=== PATIENT | female | born 1955 | race Caucasian/White ===

== ENCOUNTER → 2018-01-22 | Outpatient (CLI) | payer OTHER ==
[2018-01-23 08:52] LABS: Candida species (DNA Probe) Negative (NEGATIVE); G. vaginalis (DNA Probe) Positive (NEGATIVE); T. vaginalis (DNA Probe) Negative (NEGATIVE)
== END ==
LOC: LAB SHORT 16:33 → LAB 16:33
PROVIDERS: Family Medicine
DX: L29.8 Other pruritus (principal)
CPT/HCPCS: 87480; 87510; 87660

== ENCOUNTER 2018-05-07 10:04 | Day surgery (SDC) | payer OTHER | END 2018-05-07 22:48 | disposition home or self-care (01) | LOC: MOI MAM 10:04 | DX: N60.32 Fibrosclerosis of left breast (principal); R92.2 Inconclusive mammogram | CPT/HCPCS: 19081; 88305 ==

== ENCOUNTER → 2018-07-09 | Outpatient (CLI) | payer OTHER ==
[~2018-07-09] MED LIST: ASPI81CH PO; ATOR20 PO; CEPH500 PO; FURO20 PO; LEVSOD125 PO; MAGOXI400 PO; Norco 5-325 Ta1 EACH PO; VENL25
[2018-07-09 13:48] LABS: BASOPHILS ABSOLUTE AUTO 0.11 K/mm3 (0.00-0.23); BASOPHILS PERCENT AUTO 1 % (0-2); EOSINOPHILS ABSOLUTE AUTO 0.29 K/mm3 (0.00-0.68); EOSINOPHILS PERCENT AUTO 2 % (0-6); Hematocrit 47.5 % (33.0-51.0); Hemoglobin 15.8 g/dL (11.5-16.0); IMMATURE GRAN ABSOLUTE AUTO 0.04 K/mm3 (0.00-0.10); IMMATURE GRAN PERCENT AUTO 0 % (0-1); LYMPHOCYTES ABSOLUTE AUTO 4.56 K/mm3 (0.84-5.20); LYMPHOCYTES PERCENT AUTO 35 % (21-46); MONOCYTES ABSOLUTE AUTO 0.87 K/mm3 (0.16-1.47); MONOCYTES PERCENT AUTO 7 % (4-13); Mean Corpuscular HGB 30.6 pg (26.0-34.0); Mean Corpuscular HGB Conc 33.3 g/dL (31.5-36.5); Mean Corpuscular Volume 92 fL (80-100); Mean Platelet Volume 11.5 fL (9.1-12.4); NEUTROPHILS ABSOLUTE AUTO 7.08 K/mm3 (1.96-9.15); NEUTROPHILS PERCENT AUTO 55 % (41-73); Platelet Count 235 K/mm3 (150-400); RDW Coefficient Variation 17.7 % (11.7-14.2); RDW Standard Deviation 58.8 fL (35.1-46.3); Red Blood Cell Count 5.17 M/mm3 (3.80-5.20); White Blood Cell Count 12.95 K/mm3 (4.00-11.30)
[2018-07-09 14:03] LABS: Alanine Aminotransfer (ALT/SGP 246 U/L (12-78); Albumin, Blood 2.7 g/dL (3.4-5.0); Albumin/Globulin Ratio 0.5 (0.8-1.8); Alk Phos 257 U/L (40-126); Anion Gap 7 mmol/L (6-16); Aspartate Aminotrans (AST/SGOT 291 U/L (12-37); Bilirubin, Total 1.5 mg/dL (0.1-1.0); Blood Urea Nitrogen 11 mg/dL (8-24); Bun/Creatinine Ratio 13.4 (12.0-20.0); CO2, Blood 28 mmol/L (21-32); Calcium, Blood 8.5 mg/dL (8.5-10.1); Chloride, Blood 101 mmol/L (98-108); Creatinine, Blood 0.82 mg/dL (0.40-1.00); Globulin, Blood 5.4 g/dL (2.2-4.0); Glomerular Filtration Rate >60 (60-); Glucose, Blood 97 mg/dL (70-99); Sodium, Blood 136 mmol/L (136-145); Total Protein, Blood 8.1 g/dL (6.4-8.2)
[2018-07-09 14:04] LABS: Troponin I <0.017 ng/mL (0.000-0.040)
== END | disposition home or self-care (01) ==
LOC: LAB SHORT 13:44 → LAB EV 13:44
PROVIDERS: Physician Assistant
DX: R10.11 Right upper quadrant pain (principal)
CPT/HCPCS: 80053; 83690; 84484; 85025; 85379

== ENCOUNTER → 2018-11-17 | Outpatient (CLI) | payer OTHER, SELFPAY ==
[~2018-11-17] MED LIST changes: +CALCIUM PO; +METROGEL55 GM TOP; +Omega 3 1,0001 EACH PO; +STRESS B-COMPL1 EACH PO; -VENL25; +VENL25 PO
== END ==
LOC: LAB SHORT 17:55 → LAB 17:55
DX: R35.0 Frequency of micturition (principal); R53.83 Other fatigue
CPT/HCPCS: 87086

== ENCOUNTER 2018-12-02 09:54 | Day surgery (SDC) | payer OTHER, SELFPAY ==
--- NOTE | 2018-12-02 11:51 | NUR ---
1145- RESUMED CARE OF PATIENT. Dressing to biopsy site to right lateral upper abdomen, dry, intact with visible drainage, swelling, erythema or bruising noted.
--- NOTE | 2018-12-02 13:12 | NUR ---
No change to bx site to RUQ abdomen. No visible drainage, swelling, erythema or bruising noted. Patient states her RUQ abd/shoulder/neck pain tolerable and down to 3/10. Up to BR with steady gait, but admits to nurse she is feeling under the influence of her antianxiety medication,Ativan,taken at home today in preperation for her biopsy. Patient alert and answers questions appropriately. Discharge instructions reviewed with patient. Patient verbalizes understanding. Copy given to patient to take home. Patient States Post-Procedure ride home has been arranged with Adriano.
== END 2018-12-02 13:17 | disposition home or self-care (01) ==
LOC: US 09:54
DX: K74.60 Unspecified cirrhosis of liver (principal); K75.9 Inflammatory liver disease, unspecified; R74.8 Abnormal levels of other serum enzymes; E78.5 Hyperlipidemia, unspecified; Z86.73 Personal history of transient ischemic attack (TIA), and cerebral infarction without residual deficits; Z88.1 Allergy status to other antibiotic agents; Z87.891 Personal history of nicotine dependence
CPT/HCPCS: 47000; 76942; 88307

== ENCOUNTER → 2018-12-03 | Outpatient (CLI) | payer OTHER | END | disposition home or self-care (01) | LOC: LAB SHORT 15:30 → LAB 15:30 | DX: E11.9 Type 2 diabetes mellitus without complications (principal); R80.9 Proteinuria, unspecified | CPT/HCPCS: 82043 ==

== ENCOUNTER → 2019-03-18 | Outpatient (CLI) | payer OTHER ==
[2019-03-18 17:04] LABS: Influenza A Negative (NEGATIVE); Influenza B Negative (NEGATIVE)
== END | disposition home or self-care (01) ==
LOC: LAB 12:20 → LAB SHORT 12:20
PROVIDERS: Physician Assistant
DX: R05 Cough (principal)
CPT/HCPCS: 87804

== ENCOUNTER 2019-04-17 08:03 | Day surgery (SDC) | payer OTHER ==
[~2019-04-17] VITALS: Ht 162.6 cm; Wt 144.6 kg
[~2019-04-17 08:03] MED LIST changes: +BUDE6HFA INH; +BUPR150T2 PO
--- NOTE | 2019-04-17 08:53 | NUR ---
History, Chart, Medications and Allergies reviewed before start of procedure. Lungs clear T/O to Auscultation. Patient confirms NPO status and agrees with scheduled surgery. Pre-Op teaching done. Pt verbalizes understanding. Patient States Post-Procedure ride home has been arranged.
--- NOTE | 2019-04-17 09:38 | NUR ---
04/17/19 0938 Floyd Morales See Anesthesia record. Patient to ENDO 1. History, Chart, Medications and Allergies reviewed before start of procedure. MONITOR INTACT WITH CONTINUOUS PULSE OXIMETRY AND INTERMITTENT BP. O2 VIA N/C INTACT THROUGHOUT SEDATION/PROCEDURE.
--- NOTE | 2019-04-17 10:01 | NUR ---
DR REEVES PRESENT AT BEDSIDE NOW.
== END 2019-04-17 23:00 | disposition home or self-care (01) ==
LOC: ORSCMMR 08:03 → ORD 09:45 → ORSCMMR 23:00
PROVIDERS: Internal Medicine Gastroenterology
PROC: 0DB68ZX Excision of Stomach, Via Natural or Artificial Opening Endoscopic, Diagnostic (ICD-10-PCS; principal; 2019-04-17 09:45)
PROC: 0D757ZZ Dilation of Esophagus, Via Natural or Artificial Opening (ICD-10-PCS; principal; 2019-04-17 09:45)
DX: K74.60 Unspecified cirrhosis of liver (principal); R13.10 Dysphagia, unspecified; K29.80 Duodenitis without bleeding; K31.89 Other diseases of stomach and duodenum; K76.6 Portal hypertension; G47.33 Obstructive sleep apnea (adult) (pediatric); E11.9 Type 2 diabetes mellitus without complications; E78.5 Hyperlipidemia, unspecified; Z86.73 Personal history of transient ischemic attack (TIA), and cerebral infarction without residual deficits; E05.90 Thyrotoxicosis, unspecified without thyrotoxic crisis or storm; F32.9 Major depressive disorder, single episode, unspecified; J45.909 Unspecified asthma, uncomplicated; E66.01 Morbid (severe) obesity due to excess calories; Z68.43 Body mass index [BMI] 50.0-59.9, adult; Z87.891 Personal history of nicotine dependence; Z79.82 Long term (current) use of aspirin; Z79.899 Other long term (current) drug therapy
CPT/HCPCS: 82947; 88305; 88342; J2704; J7120

== ENCOUNTER 2019-10-24 18:31 | Emergency (ER) | payer OTHER ==
[~2019-10-24] VITALS: Ht 162.6 cm; Wt 131.5 kg
== END 2019-10-24 21:30 | disposition home or self-care (01) ==
LOC: ER 18:31
DX: M79.675 Pain in left toe(s) (principal); G89.29 Other chronic pain; Z88.1 Allergy status to other antibiotic agents; Z79.899 Other long term (current) drug therapy; Z79.82 Long term (current) use of aspirin; Z86.73 Personal history of transient ischemic attack (TIA), and cerebral infarction without residual deficits; Z87.891 Personal history of nicotine dependence
CPT/HCPCS: 93971; 99283-25

== ENCOUNTER 2021-05-17 10:09 | Emergency (ER) | payer OTHER ==
[~2021-05-17] VITALS: Ht 162.6 cm; Wt 131.5 kg
[2021-05-17 10:53] LABS: BASOPHILS ABSOLUTE AUTO 0.05 K/mm3 (0.00-0.23); BASOPHILS PERCENT AUTO 1 % (0-2); EOSINOPHILS ABSOLUTE AUTO 0.29 K/mm3 (0.00-0.68); EOSINOPHILS PERCENT AUTO 4 % (0-6); Hematocrit 44.7 % (33.0-51.0); Hemoglobin 13.9 g/dL (11.5-16.0); IMMATURE GRAN ABSOLUTE AUTO 0.01 K/mm3 (0.00-0.10); IMMATURE GRAN PERCENT AUTO 0 % (0-1); LYMPHOCYTES ABSOLUTE AUTO 3.15 K/mm3 (0.84-5.20); LYMPHOCYTES PERCENT AUTO 38 % (21-46); MONOCYTES ABSOLUTE AUTO 0.62 K/mm3 (0.16-1.47); MONOCYTES PERCENT AUTO 7 % (4-13); Mean Corpuscular HGB 28.6 pg (26.0-34.0); Mean Corpuscular HGB Conc 31.1 g/dL (31.5-36.5); Mean Corpuscular Volume 92 fL (80-100); Mean Platelet Volume 10.6 fL (9.1-12.4); NEUTROPHILS ABSOLUTE AUTO 4.26 K/mm3 (1.96-9.15); NEUTROPHILS PERCENT AUTO 51 % (41-73); Platelet Count 169 K/mm3 (150-400); RDW Coefficient Variation 16.6 % (11.7-14.2); RDW Standard Deviation 56.1 fL (35.1-46.3); Red Blood Cell Count 4.86 M/mm3 (3.80-5.20); White Blood Cell Count 8.38 K/mm3 (4.00-11.30)
[2021-05-17 11:05] LABS: Troponin I <0.015 ng/mL (0.000-0.040)
[2021-05-17 11:06] LABS: Alanine Aminotransfer (ALT/SGP 40 U/L (12-78); Albumin, Blood 3.5 g/dL (3.4-5.0); Albumin/Globulin Ratio 0.8 (0.8-1.8); Alk Phos 222 U/L (50-136); Anion Gap 6 mmol/L (6-16); Aspartate Aminotrans (AST/SGOT 46 U/L (12-37); Bilirubin, Total 1.2 mg/dL (0.1-1.0); Blood Urea Nitrogen 13 mg/dL (8-24); Bun/Creatinine Ratio 20.1 (12.0-20.0); CO2, Blood 28 mmol/L (21-32); Calcium, Blood 9.6 mg/dL (8.5-10.1); Chloride, Blood 105 mmol/L (98-108); Creatinine, Blood 0.65 mg/dL (0.40-1.00); Globulin, Blood 4.6 g/dL (2.2-4.0); Glomerular Filtration Rate >60 (60-); Glucose, Blood 152 mg/dL (70-99); Potassium, Blood 4.2 mmol/L (3.5-5.5); Sodium, Blood 139 mmol/L (136-145); Total Protein, Blood 8.1 g/dL (6.4-8.2)
[2021-05-17] MEDS ORDERED: ALBU90OI INH (15:13)
[2021-05-17 15:25] LABS: Influenza A, PCR NEGATIVE (NEGATIVE); Influenza B, PCR NEGATIVE (NEGATIVE); Resp Syncytial Virus, PCR NEGATIVE (NEGATIVE); SARS-Cov-2 (COVID-19) PCR, MMC NEGATIVE (NEGATIVE)
== END 2021-05-17 16:44 | disposition home or self-care (01) ==
LOC: ER 10:09
PROVIDERS: Physician Assistant; Student in an Organized Health Care Education/Training Program
DX: F41.9 Anxiety disorder, unspecified (principal); J06.9 Acute upper respiratory infection, unspecified; Z88.1 Allergy status to other antibiotic agents; J45.909 Unspecified asthma, uncomplicated; Z79.82 Long term (current) use of aspirin; Z79.899 Other long term (current) drug therapy; Z87.891 Personal history of nicotine dependence; Z20.822 Contact with and (suspected) exposure to COVID-19
CPT/HCPCS: 0241U; 36415; 71046; 80053; 84484; 85025; 93005; 93010; 96374; 96375; 99285-25; J1885; J2405; J7030

== ENCOUNTER 2021-05-20 11:45 | Emergency (ER) | payer OTHER ==
[~2021-05-20] VITALS: Ht 162.6 cm; Wt 113.4 kg
[~2021-05-20 11:45] MED LIST changes: +ALBU90OI INH
[2021-05-20 12:39] LABS: BASOPHILS ABSOLUTE AUTO 0.05 K/mm3 (0.00-0.23); BASOPHILS PERCENT AUTO 1 % (0-2); EOSINOPHILS ABSOLUTE AUTO 0.03 K/mm3 (0.00-0.68); EOSINOPHILS PERCENT AUTO 0 % (0-6); Hematocrit 42.9 % (33.0-51.0); Hemoglobin 13.6 g/dL (11.5-16.0); IMMATURE GRAN ABSOLUTE AUTO 0.07 K/mm3 (0.00-0.10); IMMATURE GRAN PERCENT AUTO 1 % (0-1); LYMPHOCYTES ABSOLUTE AUTO 1.66 K/mm3 (0.84-5.20); LYMPHOCYTES PERCENT AUTO 16 % (21-46); MONOCYTES ABSOLUTE AUTO 0.75 K/mm3 (0.16-1.47); MONOCYTES PERCENT AUTO 7 % (4-13); Mean Corpuscular HGB 28.7 pg (26.0-34.0); Mean Corpuscular HGB Conc 31.7 g/dL (31.5-36.5); Mean Corpuscular Volume 91 fL (80-100); Mean Platelet Volume 11.1 fL (9.1-12.4); NEUTROPHILS ABSOLUTE AUTO 7.79 K/mm3 (1.96-9.15); NEUTROPHILS PERCENT AUTO 75 % (41-73); Platelet Count 189 K/mm3 (150-400); RDW Coefficient Variation 16.2 % (11.7-14.2); RDW Standard Deviation 54.6 fL (35.1-46.3); Red Blood Cell Count 4.74 M/mm3 (3.80-5.20); White Blood Cell Count 10.35 K/mm3 (4.00-11.30)
[2021-05-20 12:58] LABS: Alanine Aminotransfer (ALT/SGP 28 U/L (12-78); Albumin, Blood 3.6 g/dL (3.4-5.0); Albumin/Globulin Ratio 0.9 (0.8-1.8); Alk Phos 169 U/L (50-136); Anion Gap 0 mmol/L (6-16); Aspartate Aminotrans (AST/SGOT 23 U/L (12-37); Bilirubin, Total 0.8 mg/dL (0.1-1.0); Blood Urea Nitrogen 19 mg/dL (8-24); Bun/Creatinine Ratio 31.1 (12.0-20.0); CO2, Blood 31 mmol/L (21-32); Chloride, Blood 109 mmol/L (98-108); Creatinine, Blood 0.61 mg/dL (0.40-1.00); Glomerular Filtration Rate >60 (60-); Glucose, Blood 166 mg/dL (70-99); Potassium, Blood 4.1 mmol/L (3.5-5.5); Sodium, Blood 140 mmol/L (136-145); Total Protein, Blood 7.6 g/dL (6.4-8.2)
[2021-05-20] MEDS ORDERED: XARELTO10 M1 PO (16:23)
[2021-05-20] MEDS ORDERED: XARELTO15 MG PO (17:43)
== END 2021-05-20 17:37 | disposition home or self-care (01) ==
LOC: ER 11:45
PROVIDERS: Physician Assistant
DX: I82.442 Acute embolism and thrombosis of left tibial vein (principal); I82.452 Acute embolism and thrombosis of left peroneal vein; Z88.1 Allergy status to other antibiotic agents; Z79.899 Other long term (current) drug therapy; Z79.82 Long term (current) use of aspirin; Z87.891 Personal history of nicotine dependence
CPT/HCPCS: 36415; 71260; 80053; 85025; 93005; 93010; 93971; Q9967

== ENCOUNTER → 2021-05-29 | Outpatient (CLI) | payer OTHER ==
[~2021-05-29] MED LIST changes: +XARELTO10 M1 PO; +XARELTO15 MG PO
== END | disposition home or self-care (01) ==
LOC: LAB SHORT 10:00
DX: R31.9 Hematuria, unspecified (principal)
CPT/HCPCS: 87086

== ENCOUNTER → 2022-05-30 | Outpatient (CLI) | payer OTHER ==
[2022-05-30 17:30] LABS: Influenza A, PCR NEGATIVE (NEGATIVE); Influenza B, PCR NEGATIVE (NEGATIVE); Resp Syncytial Virus, PCR NEGATIVE (NEGATIVE); SARS-Cov-2 (COVID-19) PCR, MMC NEGATIVE (NEGATIVE)
== END | disposition home or self-care (01) ==
LOC: LAB SHORT 14:45
PROVIDERS: Family Medicine
DX: J02.9 Acute pharyngitis, unspecified (principal); M79.10 Myalgia, unspecified site
CPT/HCPCS: 0241U

== ENCOUNTER → 2022-07-14 | Outpatient (CLI) | payer OTHER ==
[2022-07-14 12:27] LABS: Influenza A, PCR NEGATIVE (NEGATIVE); Influenza B, PCR NEGATIVE (NEGATIVE); Resp Syncytial Virus, PCR NEGATIVE (NEGATIVE)
[2022-07-14 13:07] LABS: SARS-Cov-2 (COVID-19) PCR, MMC POSITIVE (NEGATIVE)
== END | disposition home or self-care (01) ==
LOC: LAB 11:00 → LAB SHORT 11:00
PROVIDERS: Family Medicine
DX: M79.10 Myalgia, unspecified site (principal); Z20.822 Contact with and (suspected) exposure to COVID-19; R05.9 Cough, unspecified
CPT/HCPCS: 0241U

== ENCOUNTER → 2022-08-17 | Outpatient (CLI) | payer OTHER | END | disposition home or self-care (01) | LOC: LAB SHORT 15:22 | DX: N39.0 Urinary tract infection, site not specified (principal) | CPT/HCPCS: 87086 ==

== ENCOUNTER 2022-09-29 12:54 | Observation (INO) | payer OTHER ==
[~2022-09-29] VITALS: Ht 162.6 cm; Wt 89.5 kg
[2022-09-29 13:56] LABS: BASOPHILS ABSOLUTE AUTO 0.05 K/mm3 (0.00-0.23); BASOPHILS PERCENT AUTO 1 % (0-2); EOSINOPHILS ABSOLUTE AUTO 0.25 K/mm3 (0.00-0.68); EOSINOPHILS PERCENT AUTO 3 % (0-6); Hematocrit 41.5 % (33.0-51.0); Hemoglobin 13.2 g/dL (11.5-16.0); IMMATURE GRAN ABSOLUTE AUTO 0.03 K/mm3 (0.00-0.10); IMMATURE GRAN PERCENT AUTO 0 % (0-1); LYMPHOCYTES ABSOLUTE AUTO 2.94 K/mm3 (0.84-5.20); LYMPHOCYTES PERCENT AUTO 33 % (21-46); MONOCYTES PERCENT AUTO 8 % (4-13); Mean Corpuscular HGB 28.2 pg (26.0-34.0); Mean Corpuscular HGB Conc 31.8 g/dL (31.5-36.5); Mean Corpuscular Volume 89 fL (80-100); Mean Platelet Volume 10.8 fL (9.1-12.4); NEUTROPHILS ABSOLUTE AUTO 4.93 K/mm3 (1.96-9.15); NEUTROPHILS PERCENT AUTO 55 % (41-73); Platelet Count 209 K/mm3 (150-400); RDW Coefficient Variation 17.3 % (11.7-14.2); RDW Standard Deviation 56.6 fL (35.1-46.3); Red Blood Cell Count 4.68 M/mm3 (3.80-5.20)
[2022-09-29 14:16] LABS: Albumin, Blood 3.4 g/dL (3.4-5.0); Albumin/Globulin Ratio 0.8 (0.8-1.8); Bilirubin, Total 0.6 mg/dL (0.1-1.0); Calcium, Blood 8.9 mg/dL (8.5-10.1); Creatinine, Blood 0.83 mg/dL (0.40-1.00); Potassium, Blood 4.9 mmol/L (3.5-5.5); Total Protein, Blood 7.4 g/dL (6.4-8.2)
[2022-09-29 17:50] LABS: International Normalized Ratio 1.65; Prothrombin Time Results 16.8 Sec (9.7-11.5)
[2022-09-29] MEDS ORDERED: Budeprion Xl300 MG PO (19:43)
[2022-09-29] MEDS ORDERED: LOSA25 PO (19:44)
[2022-09-29] MEDS ORDERED: VENL150ER PO (19:45)
[2022-09-29 20:30] VITALS: BP 135/71
[2022-09-30 05:44] LABS: International Normalized Ratio 1.64; Prothrombin Time Results 16.7 Sec (9.7-11.5)
[2022-09-30 05:53] LABS: CHOL/HDL RATIO 1.7; Cholesterol 126 mg/dL (50-200); HDL Cholesterol 73 mg/dL (>39); LDL/HDL RATIO 0.5; Low Density Lipoprotein Chol 38 mg/dL (0-110); Triglycerides 76 mg/dL (30-160); Very Low Density Lipoprot Chol 15 mg/dL (6-32)
--- NOTE | 2022-09-30 06:03 | NUR ---
PATIENT WAS RECIEVED THROUGH ED ADMIT, ALERT AND ORIENTED X4, COOPERATIVE WITH CARE. THE ONLY DEFICITE NOTED WERE A LUE DRIFT (MILD) AND LIMITED ROM, AND LARGER LEFT PUPIL. PLACED ON STAND BY ASSIST DUE TO 3X FALLS IN THE LAST WEEK. TELE NS AND VSS. NO OTHER ISSUES TO REPORT. WILL CONT TO MONITOR.
[2022-09-30] MEDS ORDERED: PREG150 PO (17:32)
[2022-09-30] MEDS ORDERED: SULTRIDS PO (17:33)
[2022-09-30] MEDS ORDERED: WARF5 PO (17:33)
--- NOTE | 2022-09-30 18:12 | NUR ---
PT DISCHARGED HOME. DC INSTRUCTIONS AND EDUCATION MATERIAL EXPLAINED TO PT. PT VERBAILZED NO NEW QUESTIONS OR CONCERNS. TELE AND IV IN R HAND AND LEFT AC REMOVED. PT TOLERATED WELL. IN ROOM AND HELPED PT GATHER BELONGINGS AND DRESS. PT TAKEN BY WHEELCHAIR TO WAITING VEHICLE.
== END 2022-09-30 17:50 | disposition home or self-care (01) ==
LOC: ER 12:54 → MEDS 18:56 → ENPENDDIS 09-30 16:57 → MEDS 09-30 17:50
PROVIDERS: Nurse Practitioner Acute Care; Physician Assistant; ADMIT Internal Medicine
DX: R47.01 Aphasia (principal); R53.1 Weakness; J45.909 Unspecified asthma, uncomplicated; K74.60 Unspecified cirrhosis of liver; K75.81 Nonalcoholic steatohepatitis (NASH); L03.90 Cellulitis, unspecified; F32.9 Major depressive disorder, single episode, unspecified; G47.33 Obstructive sleep apnea (adult) (pediatric); G25.81 Restless legs syndrome; E11.9 Type 2 diabetes mellitus without complications; E03.9 Hypothyroidism, unspecified; I35.0 Nonrheumatic aortic (valve) stenosis; I27.20 Pulmonary hypertension, unspecified; E66.01 Morbid (severe) obesity due to excess calories; Z68.41 Body mass index [BMI] 40.0-44.9, adult; Z87.891 Personal history of nicotine dependence; Z86.718 Personal history of other venous thrombosis and embolism; Z88.1 Allergy status to other antibiotic agents; Z79.890 Hormone replacement therapy; Z79.01 Long term (current) use of anticoagulants; Z79.82 Long term (current) use of aspirin; Z79.899 Other long term (current) drug therapy
CPT/HCPCS: 36415; 70450; 70496; 70498; 70551; 80053; 80061; 82947; 83036; 85025; 85610; 93306; 94640; 94660; 94664; 94760; 94762; 96360-59; 96361; 96372; 97162; 99285-25; A9270; G0378; J1650; J7030; Q9967

== ENCOUNTER → 2022-11-08 | Outpatient (CLI) | payer OTHER ==
[~2022-11-08] MED LIST changes: +Budeprion Xl300 MG PO; +LOSA25 PO; +PREG150 PO; +SULTRIDS PO; +VENL150ER PO; +WARF5 PO
== END | disposition home or self-care (01) ==
LOC: LAB 15:48 → LAB SHORT 15:48
DX: J02.9 Acute pharyngitis, unspecified (principal)
CPT/HCPCS: 87081

== ENCOUNTER 2022-11-30 12:19 | Day surgery (SDC) | payer OTHER ==
[~2022-11-30] VITALS: Ht 162.6 cm; Wt 121.2 kg
[2022-11-30] MEDS ORDERED: METF500 (13:23)
[2022-11-30] MEDS ORDERED: Lyrica25 MG (13:23)
[2022-11-30] MEDS ORDERED: ERGO50000 (13:24)
[2022-11-30 13:34] VITALS: BP 127/70
--- NOTE | 2022-11-30 15:19 | NUR ---
11/30/22 1519 JulitoNidhi Yanes LATE ENTRY FOR TODAY DURING ADMIT PT COMMENTED TO ALEJANDRA QUINTERO THAT SHE WAS SEEING ANTS ON HER BP CUFF, PT ALSO REPORTED TO DR. CANO THAT SHE HAS BEEN DIZZY AND FALLING LATELY. ALEJANDRA QUINTERO HAD A FURTHER CONVERSATION WITH THE PATIENT REGARDING HER "HALLUCINATIONS" AND THE PT STARTED TELLING HER GRANDDAUGHTER TO STOP PULLING HER HAIR. (GRANDDAUGHTER WAS NOT IN THE ROOM). ALEJANDRA QUINTERO SHARED INFORMATION WITH DR. CANO. PT ALSO NOTED ON RECENT ECHO 09/2022 PT WAS DIAGNOSED WITH SEVERE AORTIC STENOSIS. DR. CANO DISCUSSED THE PATIENT WITH DR. GARCÍA AND THE DECISION WAS MADE TO CANCEL THE PATIENTS EGD. DR. CANO ALSO CONTACTED THE PATIENTS PCP-MORIAH APPLE AND DISCUSSED THE SITUATION WITH HER REGARDING THE PATIENTS "HALLUCINATIONS" AND DIZZINESS WITH FALLS. DR. APPLE AGREES WITH CANCELLING THE PROCEDURE AND LETTING THE PATIENT AND HER SPOUSE DECIDE IF SHE NEEDS TO GO TO THE EMERGENCY DEPARTMENT. DR. CANO DISCUSSED THE SITUATION WITH THE PATIENT, HER SPOUSE LEANDRO HAD LEFT AND PATIENT AGREED WITH THE ASSESSMENT. PATIENT ALSO WANTED DR. CANO TO DISCUSS THIS WITH HER SPOUSE WHEN HE RETURNED. PATIENT'S SPOUSE RETURNED AND DR CANO DISCUSSED WITH HIM THE FINDINGS ON THE ECHO AND HER CONCERNS WITH CONTINUING THE PATIENTS PROCEDURE. THE SPOUSE AGREES THAT THE PROCEDURE SHOULD BE POSTPONED BUT THINKS THAT THE PATIENT IS NOT HALLUCINATING BUT HAVING VIVID DREAMS, WHICH HE REPORTS SHE HAS AT HOME. PT WILL BE DISCHARGED HOME AND HAS AN APPOINTMENT WITH CARDIOLOGY ON 12/06. RN ENCOURAGED AND PATIENT TO GO TO THE ED IF HER CONDITIONS WORSEN.
== END 2022-11-30 14:54 | disposition home or self-care (01) ==
LOC: ORSCSDS 12:19
DX: K74.60 Unspecified cirrhosis of liver (principal); E11.9 Type 2 diabetes mellitus without complications; Z53.9 Procedure and treatment not carried out, unspecified reason; I10 Essential (primary) hypertension; Z86.718 Personal history of other venous thrombosis and embolism; Z79.01 Long term (current) use of anticoagulants; Z79.899 Other long term (current) drug therapy
CPT/HCPCS: 82947; J1100; J2250; J3010; J7120

== ENCOUNTER → 2022-12-14 | Outpatient (CLI) | payer OTHER ==
[~2022-12-14] MED LIST changes: +ERGO50000; +Lyrica25 MG; +METF500
== END | disposition home or self-care (01) ==
LOC: LAB 18:12 → LAB SHORT 18:12
DX: R22.40 Localized swelling, mass and lump, unspecified lower limb (principal)
CPT/HCPCS: 85379

== ENCOUNTER 2023-02-13 07:25 | Day surgery (SDC) | payer OTHER ==
[~2023-02-13] VITALS: Ht 162.6 cm; Wt 122.0 kg
[2023-02-13] VITALS (8 sets, daily range): BP systolic 108–130; BP diastolic 52–92
[~2023-02-13 07:25] MED LIST changes: -BUDE6HFA INH; +BUPR150ER PO; -Budeprion Xl300 MG PO; +EUTHYROX125 MCG PO; -LEVSOD125 PO; -METF500; +METF500 PO; +OMEP20ER PO; -PREG150 PO; +PREG75 PO; +SYMBICORT 16010.2 GM INH; -VENL150ER PO; +VENL75ER PO
--- NOTE | 2023-02-13 10:03 | NUR ---
PT RETURNS FROM PROCEDURE, ALERT AND ORIENTED, UP IN RECLINER. PT VSS UPON ARRIVAL TO UNIT. PT. HAS TR BAND IN PLACE TO RIGHT RADIAL, NO SWELLING OR OOZING, DISTAL FINGERS PINK AND WARM. PT. TO BEDSIDE. PT. PROVIDED WITH BREAKFAST AND WATER. CALL LIGHT IN REACH.
--- NOTE | 2023-02-13 11:13 | NUR ---
PT SLEEPING UP IN RECLINER, PT VSS REMAIN STABLE. PT. TR BAND REMAINS UNCHANGED WITH FREQUENT ASSESSMENT. PT. DENIES ANY CHEST PAIN OR PRESSURE. REMAINS AT BEDSIDE. TR BAND TO BE DEFLATED PER ORDER/POLICY.
--- NOTE | 2023-02-13 11:42 | NUR ---
TR BAND DEFLATED PER PROTOCOL. SITE WNL, DISCHARGE INSTRUCTIONS REVIEWED WITH PT AND . NO FURTHER QUESTIONS. VSS
--- NOTE | 2023-02-13 12:34 | NUR ---
PT ABLE TO GET DRESSED, ASSISTED. PT. TAKEN VIA WHEELCHAIR TO EXIT. PT TO DRIVE PT HOME. PT. VSS UPON DISCHARGE, RADIAL SITE WNL.
== END 2023-02-13 11:50 | disposition home or self-care (01) ==
LOC: MHTC 07:25
DX: I35.0 Nonrheumatic aortic (valve) stenosis (principal); I10 Essential (primary) hypertension; E78.5 Hyperlipidemia, unspecified; Z86.73 Personal history of transient ischemic attack (TIA), and cerebral infarction without residual deficits; Z79.01 Long term (current) use of anticoagulants; Z87.891 Personal history of nicotine dependence; I82.409 Acute embolism and thrombosis of unspecified deep veins of unspecified lower extremity
CPT/HCPCS: 76937; 93454; 99152; 99153; C1769; C1894; J2250; J3010; J7030; J7050; Q9967

== ENCOUNTER 2023-08-31 02:08 | Day surgery (SDC) | payer OTHER ==
[~2023-08-31 02:08] MED LIST changes: +CefTRIAXone Sodium 2,000 MG in NS 100 ML IV SCH; +PREG50 PO; +TRAZ50 PO; +TRELEGY ELLIPT1 EACH IH
[2023-08-31 08:51] VITALS: BP 114/93
[2023-09-01] MEDS ORDERED: CENTRUM SILVER1 EAC2 PO (10:31)
== END 2023-08-31 09:13 | disposition home or self-care (01) ==
LOC: ATC 02:08
DX: T84.53XD Infection and inflammatory reaction due to internal right knee prosthesis, subsequent encounter (principal); Y79.2 Prosthetic and other implants, materials and accessory orthopedic devices associated with adverse incidents; J45.909 Unspecified asthma, uncomplicated; E11.9 Type 2 diabetes mellitus without complications; I10 Essential (primary) hypertension; F32.A Depression, unspecified; Z88.1 Allergy status to other antibiotic agents; Z87.891 Personal history of nicotine dependence
CPT/HCPCS: 96365; J0696

== ENCOUNTER 2023-09-01 02:13 | Day surgery (SDC) | payer OTHER ==
[2023-09-01 08:40] VITALS: BP 137/67
--- NOTE | 2023-09-01 09:51 | NUR ---
PT ARRIVED TODAY STATING SHE IS IN SEVERE PAIN. PAIN STARTED THIS SATURDAY AND IT IS CONSTANT GOING ACROSS HER ABDOMEN FROM HIP TO HIP. PT REPORTS SHE IS MOST COMFORTABLE LYING ON HER BACK FLAT WITHOUT MOVING. PAIN INTESNSIFIES WHEN USING ABDOMINAL MUSCLES. PT REPORTS PAIN FEELS SIMILAR TO THE PAIN SHE FELT WHEN SHE WAS DIAGNOSED WITH SEPSIS. PT IS CONCERNED AND IS GOING TO THE ER FOR EVALUATION AFTER TODAY'S ABX. PT REPORTS NO ISSUES WITH VOIDING OR BOWEL MOVEMENTS. NO RECENT FALLS. IT IS UNKNOWN WHY THE PAIN HAS STARTED.
[2023-09-01] MEDS ORDERED: CENTRUM SILVER1 EAC2 PO (10:31)
== END 2023-09-01 09:04 | disposition home or self-care (01) ==
LOC: ATC 02:13
DX: T84.53XD Infection and inflammatory reaction due to internal right knee prosthesis, subsequent encounter (principal); Y79.2 Prosthetic and other implants, materials and accessory orthopedic devices associated with adverse incidents; I10 Essential (primary) hypertension; E11.9 Type 2 diabetes mellitus without complications; Z88.1 Allergy status to other antibiotic agents; Z87.891 Personal history of nicotine dependence; K74.60 Unspecified cirrhosis of liver; K76.6 Portal hypertension; R16.1 Splenomegaly, not elsewhere classified; J45.909 Unspecified asthma, uncomplicated; G47.33 Obstructive sleep apnea (adult) (pediatric); G25.81 Restless legs syndrome; Z79.84 Long term (current) use of oral hypoglycemic drugs; Z79.51 Long term (current) use of inhaled steroids; Z79.01 Long term (current) use of anticoagulants; Z79.899 Other long term (current) drug therapy
CPT/HCPCS: 74177; 80053; 81003; 83735; 85025; 93005; 93010; 96365; 96374-59; 99284-25; J0696; J3010; Q9967

== ENCOUNTER 2023-09-02 04:29 | Day surgery (SDC) | payer OTHER ==
[~2023-09-02 04:29] MED LIST changes: +CENTRUM SILVER1 EAC2 PO
[2023-09-02 10:15] VITALS: BP 131/84
== END 2023-09-02 10:40 | disposition home or self-care (01) ==
LOC: ATC 04:29
DX: T84.53XD Infection and inflammatory reaction due to internal right knee prosthesis, subsequent encounter (principal); J45.909 Unspecified asthma, uncomplicated
CPT/HCPCS: 96365; J0696

== ENCOUNTER 2023-09-03 01:20 | Day surgery (SDC) | payer OTHER ==
[~2023-09-03 01:20] MED LIST changes: -CefTRIAXone Sodium 2,000 MG in NS 100 ML IV SCH
[2023-09-03] MEDS ORDERED: CefTRIAXone Sodium 2,000 MG in NS 100 ML IV SCH (06:00)
[2023-09-03 11:12] LABS: BASOPHILS ABSOLUTE AUTO 0.04 K/mm3 (0.00-0.23); BASOPHILS PERCENT AUTO 1 % (0-2); EOSINOPHILS ABSOLUTE AUTO 0.02 K/mm3 (0.00-0.68); EOSINOPHILS PERCENT AUTO 0 % (0-6); Hematocrit 30.1 % (33.0-51.0); Hemoglobin 9.3 g/dL (11.5-16.0); IMMATURE GRAN ABSOLUTE AUTO 0.02 K/mm3 (0.00-0.10); IMMATURE GRAN PERCENT AUTO 0 % (0-1); LYMPHOCYTES ABSOLUTE AUTO 1.04 K/mm3 (0.84-5.20); LYMPHOCYTES PERCENT AUTO 16 % (21-46); MONOCYTES ABSOLUTE AUTO 0.62 K/mm3 (0.16-1.47); MONOCYTES PERCENT AUTO 9 % (4-13); Mean Corpuscular HGB 25.8 pg (26.0-34.0); Mean Corpuscular HGB Conc 30.9 g/dL (31.5-36.5); Mean Corpuscular Volume 83 fL (80-100); Mean Platelet Volume 10.7 fL (9.1-12.4); NEUTROPHILS ABSOLUTE AUTO 4.85 K/mm3 (1.96-9.15); NEUTROPHILS PERCENT AUTO 74 % (41-73); Platelet Count 159 K/mm3 (150-400); RDW Coefficient Variation 21.7 % (11.7-14.2); RDW Standard Deviation 65.1 fL (35.1-46.3); Red Blood Cell Count 3.61 M/mm3 (3.80-5.20); White Blood Cell Count 6.59 K/mm3 (4.00-11.30)
[2023-09-03 11:40] LABS: Albumin, Blood 2.5 g/dL (3.4-5.0); Bilirubin, Total 1.1 mg/dL (0.1-1.0); Bun/Creatinine Ratio 13.3 (12.0-20.0); C-REACTIVE PROTEIN, EXT RANGE 3.72 mg/dL (0.000-0.300); Calcium, Blood 7.1 mg/dL (8.5-10.1); Creatinine, Blood 0.53 mg/dL (0.40-1.00); Globulin, Blood 2.5 g/dL (2.2-4.0); Potassium, Blood 2.7 mmol/L (3.5-5.5)
[2023-09-03 12:03] VITALS: BP 135/77
== END 2023-09-03 10:32 | disposition home or self-care (01) ==
LOC: ATC 01:20
PROVIDERS: Internal Medicine Infectious Disease
DX: T84.53XD Infection and inflammatory reaction due to internal right knee prosthesis, subsequent encounter (principal); Y79.2 Prosthetic and other implants, materials and accessory orthopedic devices associated with adverse incidents; J45.20 Mild intermittent asthma, uncomplicated; E11.9 Type 2 diabetes mellitus without complications; I10 Essential (primary) hypertension; Z87.891 Personal history of nicotine dependence
CPT/HCPCS: 80053; 85025; 85651; 86140; 96365; J0696

== ENCOUNTER 2023-09-04 03:24 | Day surgery (SDC) | payer OTHER ==
[~2023-09-04 03:24] MED LIST changes: +CefTRIAXone Sodium 2,000 MG in NS 100 ML IV SCH
[2023-09-04 09:42] VITALS: BP 136/82
== END 2023-09-04 10:00 | disposition home or self-care (01) ==
LOC: ATC 03:24
DX: T84.53XD Infection and inflammatory reaction due to internal right knee prosthesis, subsequent encounter (principal); Y79.2 Prosthetic and other implants, materials and accessory orthopedic devices associated with adverse incidents; J45.909 Unspecified asthma, uncomplicated; E11.9 Type 2 diabetes mellitus without complications; I10 Essential (primary) hypertension; F32.A Depression, unspecified; Z87.891 Personal history of nicotine dependence; Z88.1 Allergy status to other antibiotic agents
CPT/HCPCS: 96365; J0696

== ENCOUNTER 2023-09-04 18:50 | Inpatient (IN) | payer OTHER ==
[~2023-09-04] VITALS: Ht 165.1 cm; Wt 125.4 kg
[~2023-09-04 18:50] MED LIST changes: -CefTRIAXone Sodium 2,000 MG in NS 100 ML IV SCH
[2023-09-04 19:05] LABS: BASOPHILS ABSOLUTE AUTO 0.12 K/mm3 (0.00-0.23); BASOPHILS PERCENT AUTO 1 % (0-2); EOSINOPHILS ABSOLUTE AUTO 0.25 K/mm3 (0.00-0.68); EOSINOPHILS PERCENT AUTO 2 % (0-6); Hematocrit 38.8 % (33.0-51.0); Hemoglobin 11.7 g/dL (11.5-16.0); IMMATURE GRAN ABSOLUTE AUTO 0.07 K/mm3 (0.00-0.10); IMMATURE GRAN PERCENT AUTO 0 % (0-1); LYMPHOCYTES PERCENT AUTO 25 % (21-46); MONOCYTES ABSOLUTE AUTO 1.43 K/mm3 (0.16-1.47); MONOCYTES PERCENT AUTO 9 % (4-13); Mean Corpuscular HGB 25.9 pg (26.0-34.0); Mean Corpuscular HGB Conc 30.2 g/dL (31.5-36.5); Mean Corpuscular Volume 86 fL (80-100); Mean Platelet Volume 10.2 fL (9.1-12.4); NEUTROPHILS ABSOLUTE AUTO 9.86 K/mm3 (1.96-9.15); NEUTROPHILS PERCENT AUTO 63 % (41-73); Platelet Count 262 K/mm3 (150-400); RDW Coefficient Variation 22.2 % (11.7-14.2); RDW Standard Deviation 68.9 fL (35.1-46.3); Red Blood Cell Count 4.52 M/mm3 (3.80-5.20); White Blood Cell Count 15.63 K/mm3 (4.00-11.30)
[2023-09-04 19:15] LABS: Base Excess Venous 0.2 mmol/L; Bicarbonate Venous 24.2 mmol/L (24.0-30.0); PCO2 Venous 46.2 mmHg (38-42); pH Blood Venous 7.35 (7.34-7.37)
[2023-09-04] MEDS ORDERED: Albuterol 2.5 MG/3 ML VIAL INH SCH (19:20)
[2023-09-04 19:24] LABS: International Normalized Ratio 1.23
[2023-09-04 19:40] LABS: Albumin, Blood 3.4 g/dL (3.4-5.0); Albumin/Globulin Ratio 0.8 (0.8-1.8); Bilirubin, Total 1.2 mg/dL (0.1-1.0); Bun/Creatinine Ratio 13.3 (12.0-20.0); Creatinine, Blood 0.83 mg/dL (0.40-1.00); Globulin, Blood 4.1 g/dL (2.2-4.0); Potassium, Blood 3.8 mmol/L (3.5-5.5)
[2023-09-04 19:55] LABS: Calcium, Blood 9.3 mg/dL (8.5-10.1); Total Protein, Blood 7.5 g/dL (6.4-8.2)
[2023-09-04] MEDS ORDERED: Vancomycin HCL 1,000 MG in NS 110 ML IV ONE (20:10)
[2023-09-04] MEDS ORDERED: LevoFLOXacin 750 MG/D5W 150ML 150 ML IV ONE (20:10)
[2023-09-04] MEDS ORDERED: Acetaminophen 325 MG TABLET PO PRN (21:35)
[2023-09-04] MEDS ORDERED: Albuterol 2.5 MG/3 ML VIAL INH PRN (21:40)
[2023-09-04] MEDS ORDERED: Ondansetron HCl 2 MG / ML 2ML Vial IV PRN (21:40)
[2023-09-04] MEDS ORDERED: Enoxaparin 40 MG/0.4 ML SYR SC ONE (22:00)
[2023-09-04] MEDS ORDERED: Furosemide 10 MG/ML 4ML Vial IV SCH (22:00)
[2023-09-04] MEDS ORDERED: Vancomycin HCL 1,000 MG in NS 100 ML IV ONE (22:30)
[2023-09-04] MEDS ORDERED: Warfarin Sodium 5 MG Tab PO ONE (22:30)
[2023-09-04] MEDS ORDERED: Tiotropium Bromide 2.5 MCG/ACT MIST INHAL (10 ACT/4 GM) INH SCH (22:35)
[2023-09-04] MEDS ORDERED: Mometasone/Formoterol MDI 100/5 mcg 13 GM INH SCH (22:35)
[2023-09-04 22:41] VITALS: BP 124/81
[2023-09-04] MEDS ORDERED: NS 250 ML IV PRN (23:00)
--- NOTE | 2023-09-04 23:00 | NUR ---
ARRIVAL TO PCU 10 PT ARRIVED TO PCU 10 AT APPROXIMATELY 2215. PT ARRIVED ON BIPAP WITH AT BEDSIDE. PT SLID OVER FROM ER GURNEY TO HOSPITAL BED BY 4 CLINICAL STAFF MEMBERS. PT A&O TO SELF, PERSON, PLACE; PT CAN BE FORGETFUL AT TIMES BUT CAN BE REORIENTED. BP STABLE, SINUS 80's, DENIES CP/PRESSURE. SpO2> 92% ON BIPAP 16/8 45% FiO2, DENIES SOB. PT TOLERATED BEING OFF BIPAP ON RA TO TAKE PILLS. PT REQUESTING PUREWICK AND TO HAVE ALL FOUR BED RAILS UP. ORIENTED TO CALL LIGHT/UNIT, BED IN LOWEST POSITION.
[2023-09-05] VITALS (11 sets, daily range): BP systolic 95–128; BP diastolic 52–84
[2023-09-05 01:32] LABS: Source, Urine Clean Catch
[2023-09-05 02:12] LABS: Bilirubin, Urine Neg (Neg); Blood, Urine 1+ (Neg); Glucose Qualitative, Urine Neg (Neg); Ketones, Urine Neg (Neg); Leukocyte Esterase, Urine Neg (Neg); Nitrite, Urine Neg (Neg); Protein, Urine 2+ (Neg); Urobilinogen, Urine NORM (Normal)
[2023-09-05 02:26] LABS: Appearance, Urine Clear (Clear); Color, Urine Pale Yellow (P-Yellow)
[2023-09-05 02:27] LABS: Amorphous Light (0-Heavy); Bacteria Rare /hpf; Red Blood Cells, Urine 0-2 /hpf (0-2); Squamous Epithelial Cells Few /hpf (Few); White Blood Cells, Urine 0-2 /hpf (0-5)
[2023-09-05 04:22] LABS: BASOPHILS PERCENT AUTO 0 % (0-2); EOSINOPHILS PERCENT AUTO 0 % (0-6); Hematocrit 29.3 % (33.0-51.0); Hemoglobin 9.1 g/dL (11.5-16.0); IMMATURE GRAN ABSOLUTE AUTO 0.01 K/mm3 (0.00-0.10); IMMATURE GRAN PERCENT AUTO 0 % (0-1); LYMPHOCYTES ABSOLUTE AUTO 0.38 K/mm3 (0.84-5.20); LYMPHOCYTES PERCENT AUTO 7 % (21-46); MONOCYTES ABSOLUTE AUTO 0.11 K/mm3 (0.16-1.47); MONOCYTES PERCENT AUTO 2 % (4-13); Mean Corpuscular HGB 26.1 pg (26.0-34.0); Mean Corpuscular HGB Conc 31.1 g/dL (31.5-36.5); Mean Corpuscular Volume 84 fL (80-100); Mean Platelet Volume 10.5 fL (9.1-12.4); NEUTROPHILS ABSOLUTE AUTO 4.65 K/mm3 (1.96-9.15); NEUTROPHILS PERCENT AUTO 90 % (41-73); Platelet Count 136 K/mm3 (150-400); RDW Coefficient Variation 21.5 % (11.7-14.2); RDW Standard Deviation 64.9 fL (35.1-46.3); Red Blood Cell Count 3.49 M/mm3 (3.80-5.20); White Blood Cell Count 5.15 K/mm3 (4.00-11.30)
[2023-09-05 04:34] LABS: International Normalized Ratio 1.37; Prothrombin Time Results 14.3 Sec (9.7-11.5)
[2023-09-05 04:57] LABS: Albumin, Blood 2.9 g/dL (3.4-5.0); Albumin/Globulin Ratio 0.9 (0.8-1.8); Bun/Creatinine Ratio 16.7 (12.0-20.0); Calcium, Blood 8.7 mg/dL (8.5-10.1); Creatinine, Blood 0.78 mg/dL (0.40-1.00); Globulin, Blood 3.1 g/dL (2.2-4.0); Magnesium, Blood 2.2 mg/dL (1.6-2.4); Potassium, Blood 3.5 mmol/L (3.5-5.5)
--- NOTE | 2023-09-05 05:47 | NUR ---
SHIFT SUMMARY SEE PREVIOUS NOTE. MENTATION HAS IMPROVED SINCE WEARING BIPAP ALL NIGHT. BP STABLE, SINUS 80's, DENIES CP/PRESSURE. SpO2> 92% 16/8 30% FiO2, DENIES SOB. PUREWICK IN PLACE, PATENT. NO OTHER EVENTS, WILL REPORT TO ONCOMING RN.
[2023-09-05] MEDS ORDERED: Levothyroxine Sodium 0.125 MG Tab PO SCH (06:00)
[2023-09-05] MEDS ORDERED: Omeprazole 20 MG CapCR PO SCH (07:30)
[2023-09-05] MEDS ORDERED: Insulin Human Lispro 100 Units/ML 3ML Syringe SC SCH (07:30)
[2023-09-05] MEDS ORDERED: Furosemide 10 MG/ML 4ML Vial IV SCH ×2 (09:00→18:00)
[2023-09-05] MEDS ORDERED: Azithromycin 500 MG in NS 250 ML IV SCH (09:00)
[2023-09-05] MEDS ORDERED: Pregabalin 50 MG Capsule PO SCH (09:00)
[2023-09-05] MEDS ORDERED: buPROPion HCL 150 MG TAB.SR.12H PO SCH (09:00)
[2023-09-05] MEDS ORDERED: Atorvastatin 40 MG Tab PO SCH (09:00)
[2023-09-05] MEDS ORDERED: Losartan Potassium 50 MG Tab PO SCH ×2 (09:00)
[2023-09-05] MEDS ORDERED: CefTRIAXone Sodium 2,000 MG in NS 100 ML IV SCH (09:00)
[2023-09-05] MEDS ORDERED: Venlafaxine HCl 75 MG CapCR PO SCH (09:00)
[2023-09-05] MEDS ORDERED: HyDROXyzine HCl 25 MG Tab PO PRN (09:35)
[2023-09-05] MEDS ORDERED: Vancomycin HCL 1,250 MG in NS 250 ML IV SCH (10:00)
[2023-09-05] MEDS ORDERED: Warfarin Sodium 7.5 MG Tab PO SCH (18:00)
--- NOTE | 2023-09-05 18:20 | NUR ---
shift summary this rn assumed care at 0700. vital signs stable and remained stable throughout the shift. tele sinus rhythm 70-80s. patient is alert and oriented x3-4. patient at the start of shift when being woken up stated she was in [place] and then said she was in [place]. patient at the start of shift anxious and groaning and moaning and tossing in bed. md vaca ordered anxiety medication. family in room and updated on patient coniditon. patient denies chest pain/pressure, pain or shortness of breath. see shift assessment for further detials. plan of care up to date
[2023-09-05] MEDS ORDERED: TraZODone HCl 50 MG Tab PO PRN (20:00)
[2023-09-05] MEDS ORDERED: LORazepam 1 MG Tab PO ONE (22:25)
[2023-09-06 03:43] VITALS: BP 147/100
[2023-09-06 03:55] LABS: BASOPHILS ABSOLUTE AUTO 0.01 K/mm3 (0.00-0.23); BASOPHILS PERCENT AUTO 0 % (0-2); EOSINOPHILS ABSOLUTE AUTO 0.01 K/mm3 (0.00-0.68); EOSINOPHILS PERCENT AUTO 0 % (0-6); Hematocrit 31.1 % (33.0-51.0); Hemoglobin 9.6 g/dL (11.5-16.0); IMMATURE GRAN ABSOLUTE AUTO 0.03 K/mm3 (0.00-0.10); IMMATURE GRAN PERCENT AUTO 0 % (0-1); LYMPHOCYTES ABSOLUTE AUTO 1.07 K/mm3 (0.84-5.20); LYMPHOCYTES PERCENT AUTO 13 % (21-46); MONOCYTES ABSOLUTE AUTO 0.67 K/mm3 (0.16-1.47); MONOCYTES PERCENT AUTO 8 % (4-13); Mean Corpuscular HGB 26.1 pg (26.0-34.0); Mean Corpuscular HGB Conc 30.9 g/dL (31.5-36.5); Mean Corpuscular Volume 85 fL (80-100); Mean Platelet Volume 10.3 fL (9.1-12.4); NEUTROPHILS ABSOLUTE AUTO 6.24 K/mm3 (1.96-9.15); NEUTROPHILS PERCENT AUTO 78 % (41-73); Platelet Count 157 K/mm3 (150-400); RDW Coefficient Variation 22.2 % (11.7-14.2); RDW Standard Deviation 67.9 fL (35.1-46.3); Red Blood Cell Count 3.68 M/mm3 (3.80-5.20); White Blood Cell Count 8.03 K/mm3 (4.00-11.30)
[2023-09-06 04:19] LABS: Bun/Creatinine Ratio 23.8 (12.0-20.0); Creatinine, Blood 0.76 mg/dL (0.40-1.00); Potassium, Blood 3.2 mmol/L (3.5-5.5)
--- NOTE | 2023-09-06 04:49 | NUR ---
SHIFT SUMMARY NO ACUTE CHANGES THIS SHUFT. VSS. AXO4. ON RA FOR MAJORITY OF SHIFT UNTIL PT BEGAN TO SLEEP, PLACED ON 1.5LNC TO MAINTAIN SPO2 >90%. HAS NOT REQUIRED BIPAP. PT CONTINUES TO DIURESE WELL. DAUGHTER VISITED, EDUCATED REGARDING PT'S CONDITION AND PLAN FOR TOMORROW. PICC REMAINS PATENT AND SECURED. PT BEING REPOSITIONED THIS SHIFT. BED IN LOW POSITION. CALL LIGHT WITHIN REACH.
[2023-09-06] MEDS ORDERED: Potassium Chloride 20 MEQ TabCR PO ONE (08:25)
[2023-09-06 08:50] VITALS: BP 124/69
[2023-09-06 09:59] LABS: Vancomycin, Trough 20.1 ug/mL (5.0-10.0)
--- NOTE | 2023-09-06 10:07 | NUR ---
AM NOTE this rn assumed care at 0700. vital signs stable. tele sinus rhythm 80s. patient is alert and oriented x4. perrla. patient is able to make needs known and is forgetful at times. denies chest pain/pressure, pain or shortness of breath. see shift assessment for further detials. patient switched to medical status with tele. physical therapy ordered. see orders. nola in to see patient. plan of care is up to date
[2023-09-06 10:51] VITALS: BP 129/81
[2023-09-06] MEDS ORDERED: Vancomycin HCL 1,000 MG in NS 100 ML IV SCH (12:00)
--- NOTE | 2023-09-06 14:41 | NUR ---
SHIFT SUMMARY/TRANSFER NOTE this rn gave report to eliana mercedes on medical floor at approx 1415. patient family in room and aware of moving to new room on medical floor 341. patient neuro remains intact. vitals remain stable. patient worked with physical therapy before going upstairs. no acute changes. plan of care remains up to date. patient left with all belongings to new room and in no distress.
--- NOTE | 2023-09-06 16:21 | NUR ---
[id number]-[id number] PT ARRIVED ON MEDICAL FLOOR IN STABLE CONDITION.
[2023-09-06] MEDS ORDERED: Warfarin Sodium 5 MG Tab PO SCH (18:00)
[2023-09-06] MEDS ORDERED: Warfarin Sodium 7.5 MG Tab PO SCH (18:00)
[2023-09-06 19:33] VITALS: BP 122/71
[2023-09-06] MEDS ORDERED: Lactobacil 2-S.Thermo-Bifido 1 1 Cap PO SCH (21:00)
[2023-09-07 02:24] VITALS: BP 125/82
--- NOTE | 2023-09-07 05:20 | NUR ---
SHIFT SUMMARY. PATIENT IS AOX4. PATIENT ADMIITTED FOR ACUTE RESPIRATORY FAILURE WITH HYPOXIA. PATIENT IS ON RA SATTING >90% VIA CONTINUOUS PULSE OXOMETER. PATIENT IS ABLE TO MAKE HER NEEDS KNOWN. PATIENT IS INCONTINENT OF BLADDER WITH PUREWICK IN PLACE AND CONTINENT OF BOWEL. PATIENT SLEEPING WITH HOME CPAP ON. PATIENT IS A 1P ASSIST TO BATHROOM WITH FWW AND GAIT BELT. TELE IS ON WITH LEADS IN PLACE; PATIENT RUNNING SINUS RHYTHM IN THE 90'S. PATIENTS ABLE TO MAKE HER NEEDS KNOWN. NO ACUTE CHANGES NOTED. BED IS LOCKED IN THE LOWEST POSITION WITH CALL LIGHT IN REACH. CARE IS ONGOING.
[2023-09-07 07:01] LABS: BASOPHILS ABSOLUTE AUTO 0.05 K/mm3 (0.00-0.23); BASOPHILS PERCENT AUTO 1 % (0-2); EOSINOPHILS PERCENT AUTO 2 % (0-6); Hematocrit 34.7 % (33.0-51.0); Hemoglobin 10.9 g/dL (11.5-16.0); IMMATURE GRAN ABSOLUTE AUTO 0.01 K/mm3 (0.00-0.10); IMMATURE GRAN PERCENT AUTO 0 % (0-1); LYMPHOCYTES ABSOLUTE AUTO 1.37 K/mm3 (0.84-5.20); LYMPHOCYTES PERCENT AUTO 21 % (21-46); MONOCYTES PERCENT AUTO 11 % (4-13); Mean Corpuscular HGB 25.8 pg (26.0-34.0); Mean Corpuscular HGB Conc 31.4 g/dL (31.5-36.5); Mean Corpuscular Volume 82 fL (80-100); Mean Platelet Volume 10.1 fL (9.1-12.4); NEUTROPHILS PERCENT AUTO 66 % (41-73); Platelet Count 156 K/mm3 (150-400); RDW Coefficient Variation 21.6 % (11.7-14.2); RDW Standard Deviation 63.9 fL (35.1-46.3); Red Blood Cell Count 4.23 M/mm3 (3.80-5.20); White Blood Cell Count 6.63 K/mm3 (4.00-11.30)
[2023-09-07 07:17] LABS: International Normalized Ratio 2.14; Prothrombin Time Results 21.6 Sec (9.7-11.5)
[2023-09-07 07:22] LABS: Bun/Creatinine Ratio 20.2 (12.0-20.0); Calcium, Blood 8.6 mg/dL (8.5-10.1); Creatinine, Blood 0.74 mg/dL (0.40-1.00); Potassium, Blood 3.1 mmol/L (3.5-5.5)
[2023-09-07 07:47] VITALS: BP 133/76
[2023-09-07] MEDS ORDERED: Potassium Chloride 20 MEQ TabCR PO ONE (09:00)
--- NOTE | 2023-09-07 09:00 | NUR ---
pt laying in bed awake watching tv, a/ox4, pleasant and cooperative with care, follows commands well, denies pain at this time, lungs are clear dim in bases, resp even and unlabored, no cough noted, on r/a durring the day, uses cpap at hs, on continuous oxymeter, hrr, tele in place running sr in the 90's per monitor, see strip, no edema noted, ppp+1, cap refill <3 sec, vs stable, afebrile, picc line to shahriar site is clear and patent, has piv to lfa, site is clear and patent, btx4, abd flat soft nontender, voids without diff, skin c/w/d, maew, sulaiman, call light in reach.
[2023-09-07] MEDS ORDERED: Pramipexole DI-HCL 1 Mg Tab PO ONE (14:40)
[2023-09-07 15:21] VITALS: BP 105/70
--- NOTE | 2023-09-07 16:01 | NUR ---
Pt was given tylenol for h/a, she reports it's gone now, gave miripex for restless legs, she said they settled down, feel a lot better now. back in bed resting, call light in reach.
[2023-09-07] MEDS ORDERED: Warfarin Sodium 5 MG Tab PO SCH (18:00)
--- NOTE | 2023-09-07 18:09 | NUR ---
pt has been up to chair for a while today, did have some restless legs, but miripex was effective for it, no acute changes this shift, call light in reach.
[2023-09-07 20:08] VITALS: BP 106/65
[2023-09-08 03:46] VITALS: BP 117/76
--- NOTE | 2023-09-08 04:13 | NUR ---
0330 AMAIRANI XIAO NOTIFIED THIS RN THAT PATIENT HAS NOT VOIDED THIS SHIFT, THIS RN WENT IN TO ASSESS PATIENT. PATIENT REPORTS SHE THINKS SHE MIGHT BE ABLE TO VOID. THIS RN EXPLAINED TO THE PATIENT THAT BECAUSE SHE HAS NOT VOIDED WE WILL OBTAIN A BLADDER SCAN TO SEE IF/HOW MUCH URINE PATIENT HAS IN HER BLADDER. BLADDER SCAN COMPLETED AND SHOWED A VOLUME OF 820ML IN THE BLADDER. PATIENT REQUESTED TO HAVE SOME TIME TO VOID. THIS RN LET PATIENT KNOW IF SHE DOES NOT VOID BY 0400 THAT WE WOULD NEED TO CALL THE DOCTOR AND SEE WHAT INTERVENTIONS IF ANY ARE NEEDED FOR THE CURRENT RETENTION ISSUE. 0358 PATIENT CALLS WITH CALL LIGHT AND REPORTS THAT SHE HAS URINATED. THIS RN IN TO BEDSIDE, PATIENT URINATED 800ML OF URINE MEASURED WITH PUREWICK INTERVENTION THAT IS IN PLACE. 0400 POST VOID BLADDER SCAN DONE. PATIENT SHOWED A LEFT OVER VOLUME OF 282ML OF URINE IN BLADDER. PATIENT REPORTS THAT SHE FEELS LIKE SHE COULD STILL URINATE BUT DID NOT WANT TO OVER FILL CONISTER. THIS RN EMPTIED CANISTER. PATIENT HAS NOT URINATED AGAIN AT THIS TIME.
--- NOTE | 2023-09-08 05:02 | NUR ---
SHIFT SUMMARY. PATIENT IS AOX4. PATIENT ADMITTED FOR ACUTE RESPIRATORY FAILURE WITH HYPOXIA. PATIENT HAS PUREWICK IN PLACE. LOW OUTPUT RESULTING IN URINATING-SEE PREVIOUS NOTE. PATIENT IS PLEASANT AND COOPERATIVE WITH CARE. PATIENT HAS CPAP SHE WEARS AT NIGHT. PATIENT HAS BEEN SATTING >90% T/O NIGHT VIA CONTINUOUS PULSE OXOMETER. PATIENT CALLS APPROPRIATELY AND IS ABLE TO MAKE HER NEEDS KNOWN. BED IS LOCKED IN THE LOWEST POSITION WITH CALL LIGHT IN REACH. CARE IS ONGOING.
[2023-09-08 05:42] LABS: International Normalized Ratio 2.34; Prothrombin Time Results 23.5 Sec (9.7-11.5)
[2023-09-08 05:57] LABS: Bun/Creatinine Ratio 21.8 (12.0-20.0); Calcium, Blood 9.1 mg/dL (8.5-10.1); Creatinine, Blood 0.74 mg/dL (0.40-1.00); Potassium, Blood 3.2 mmol/L (3.5-5.5)
[2023-09-08 07:27] VITALS: BP 126/72
[2023-09-08] MEDS ORDERED: Potassium Chloride 20 MEQ TabCR PO ONE (08:25)
[2023-09-08] MEDS ORDERED: Furosemide 40 MG Tab PO SCH (09:00)
--- NOTE | 2023-09-08 09:00 | NUR ---
pt laying in bed with cpap in place, sats found to be in the 85%, woke her and removed cpap, she came up to 92%, got her up to the chair and sats dropped to 85% again, placed her on 2 liters o2 via n/c, no cough noted, sats came up above 90%, will leave her on that for now, hrr, tele in place running sr per monitor, see strip, 3+ edema noted to b/l le, picc line to shahriar site is clear and patent, btx4, abd flat soft nontender, voids via purwick due to incont, skin c/w/d, some scattered bruising, carolynn, one person assist to transfer, sulaiman call light in reach.
[2023-09-08] MEDS ORDERED: ACET325 PO (10:46)
[2023-09-08] MEDS ORDERED: CEFTRIAXONE2 G1 IV (10:48)
[2023-09-08] MEDS ORDERED: VISBIOME 112.51 EACH PO (10:49)
--- NOTE | 2023-09-08 11:20 | NUR ---
pt is on r/a sats in the mid 's, states she's feeling ok, no complaints, call light in reach.
--- NOTE | 2023-09-08 15:04 | NUR ---
Pt has been discharged to home with home health, piv to left hand removed intact, picc line will stay for abx, went over discharge instructions with her and spouce, they verbalize understanding, left via wheelchair with airport planner and spouce in attendence with all belongings. she also needs o2 at home, ptbl o2 has been delivered to room.
[2023-09-08] MEDS ORDERED: Warfarin Sodium 5 MG Tab PO SCH (18:00)
== END 2023-09-08 14:31 | disposition home health service (06) | DRG 871 ==
LOC: ER 18:50 → PCU 20:53 → MEDS 22:10 → PCU 22:15 → MEDS 09-06 14:40 → ENPENDDIS 09-08 11:32 → MEDS 09-08 14:31
PROVIDERS: Emergency Medicine; Family Medicine; Nurse Practitioner Acute Care; ADMIT Internal Medicine
PROC: 5A09457 Assistance with Respiratory Ventilation, 24-96 Consecutive Hours, Continuous Positive Airway Pressure (ICD-10-PCS; principal; 2023-09-04)
PROC: 3E033XZ Introduction of Vasopressor into Peripheral Vein, Percutaneous Approach (ICD-10-PCS; 2023-09-04)
PROC: 3E03329 Introduction of Other Anti-infective into Peripheral Vein, Percutaneous Approach (ICD-10-PCS; 2023-09-04)
DX: A41.9 Sepsis, unspecified organism (principal); I50.23 Acute on chronic systolic (congestive) heart failure; J18.9 Pneumonia, unspecified organism; J96.01 Acute respiratory failure with hypoxia; J96.02 Acute respiratory failure with hypercapnia; T84.53XA Infection and inflammatory reaction due to internal right knee prosthesis, initial encounter; E87.20 Acidosis, unspecified; D64.9 Anemia, unspecified; J45.909 Unspecified asthma, uncomplicated; E11.9 Type 2 diabetes mellitus without complications; I11.0 Hypertensive heart disease with heart failure; E87.6 Hypokalemia; E03.9 Hypothyroidism, unspecified; G47.33 Obstructive sleep apnea (adult) (pediatric); R53.81 Other malaise; R65.20 Severe sepsis without septic shock; R79.89 Other specified abnormal findings of blood chemistry; K21.9 Gastro-esophageal reflux disease without esophagitis; I10 Essential (primary) hypertension; K75.81 Nonalcoholic steatohepatitis (NASH); G25.81 Restless legs syndrome; E78.5 Hyperlipidemia, unspecified; F41.9 Anxiety disorder, unspecified; I44.7 Left bundle-branch block, unspecified; R13.10 Dysphagia, unspecified; Z79.01 Long term (current) use of anticoagulants; Z86.711 Personal history of pulmonary embolism; Z86.718 Personal history of other venous thrombosis and embolism; Z86.73 Personal history of transient ischemic attack (TIA), and cerebral infarction without residual deficits; Z79.890 Hormone replacement therapy; Z79.899 Other long term (current) drug therapy; Z79.84 Long term (current) use of oral hypoglycemic drugs; Z95.828 Presence of other vascular implants and grafts; Z88.1 Allergy status to other antibiotic agents; Z79.51 Long term (current) use of inhaled steroids; Z87.891 Personal history of nicotine dependence; Z95.2 Presence of prosthetic heart valve
CPT/HCPCS: 36415; 71045; 71260; 80048; 80053; 80202; 81001; 82803; 82947; 83605; 83735; 83880; 84145; 84484; 85025; 85610; 85730; 87040; 87449; 93005; 93010; 93306; 94640; 94644; 94660; 94664; 94761; 94762; 96372-59; 96374-59; 96375-59; 96376-59; 97110; 97116; 97161; 99285-25; A9270; J0456; J0696; J1650; J1940; J1956; J2405; J3370; J7050; Q9967

== ENCOUNTER 2023-09-09 04:43 | Day surgery (SDC) | payer OTHER ==
[~2023-09-09 04:43] MED LIST changes: +ACET325 PO; +CEFTRIAXONE2 G1 IV; +VISBIOME 112.51 EACH PO
[2023-09-09] MEDS ORDERED: CefTRIAXone Sodium 2,000 MG in NS 100 ML IV SCH (10:35)
[2023-09-09 13:45] VITALS: BP 103/55
== END 2023-09-09 14:09 | disposition home or self-care (01) ==
LOC: ATC 04:43
DX: T84.53XD Infection and inflammatory reaction due to internal right knee prosthesis, subsequent encounter (principal); J45.909 Unspecified asthma, uncomplicated; E11.9 Type 2 diabetes mellitus without complications; F32.A Depression, unspecified; I10 Essential (primary) hypertension
CPT/HCPCS: 96365; J0696

== ENCOUNTER 2023-09-11 03:19 | Day surgery (SDC) | payer OTHER ==
[2023-09-11] MEDS ORDERED: CefTRIAXone Sodium 2,000 MG in NS 100 ML IV SCH (06:00)
[2023-09-11 10:02] VITALS: BP 114/78
== END 2023-09-11 10:27 | disposition home or self-care (01) ==
LOC: ATC 03:19
DX: T84.53XA Infection and inflammatory reaction due to internal right knee prosthesis, initial encounter (principal); Y71.3 Surgical instruments, materials and cardiovascular devices (including sutures) associated with adverse incidents; E11.9 Type 2 diabetes mellitus without complications; I10 Essential (primary) hypertension; G47.33 Obstructive sleep apnea (adult) (pediatric); J45.20 Mild intermittent asthma, uncomplicated; Z87.891 Personal history of nicotine dependence
CPT/HCPCS: 96365; J0696

== ENCOUNTER 2023-09-12 02:50 | Day surgery (SDC) | payer OTHER ==
[~2023-09-12 02:50] MED LIST changes: +CefTRIAXone Sodium 2,000 MG in NS 100 ML IV SCH
[2023-09-12 09:56] VITALS: BP 96/48
== END 2023-09-12 09:56 | disposition home or self-care (01) ==
LOC: ATC 02:50
DX: T84.53XD Infection and inflammatory reaction due to internal right knee prosthesis, subsequent encounter (principal); I10 Essential (primary) hypertension; E11.9 Type 2 diabetes mellitus without complications; F32.A Depression, unspecified; Y79.2 Prosthetic and other implants, materials and accessory orthopedic devices associated with adverse incidents; J45.909 Unspecified asthma, uncomplicated; G47.33 Obstructive sleep apnea (adult) (pediatric); Z87.891 Personal history of nicotine dependence; Z88.1 Allergy status to other antibiotic agents
CPT/HCPCS: 96365; J0696

== ENCOUNTER 2023-09-14 02:32 | Day surgery (SDC) | payer OTHER ==
[2023-09-14 09:53] VITALS: BP 110/66
[2023-09-14 13:39] LABS: BASOPHILS ABSOLUTE AUTO 0.04 K/mm3 (0.00-0.23); BASOPHILS PERCENT AUTO 1 % (0-2); EOSINOPHILS ABSOLUTE AUTO 0.12 K/mm3 (0.00-0.68); EOSINOPHILS PERCENT AUTO 3 % (0-6); Hematocrit 33.7 % (33.0-51.0); Hemoglobin 10.2 g/dL (11.5-16.0); IMMATURE GRAN ABSOLUTE AUTO 0.01 K/mm3 (0.00-0.10); IMMATURE GRAN PERCENT AUTO 0 % (0-1); LYMPHOCYTES ABSOLUTE AUTO 0.85 K/mm3 (0.84-5.20); LYMPHOCYTES PERCENT AUTO 18 % (21-46); MONOCYTES ABSOLUTE AUTO 0.42 K/mm3 (0.16-1.47); MONOCYTES PERCENT AUTO 9 % (4-13); Mean Corpuscular HGB 25.8 pg (26.0-34.0); Mean Corpuscular HGB Conc 30.3 g/dL (31.5-36.5); Mean Corpuscular Volume 85 fL (80-100); NEUTROPHILS ABSOLUTE AUTO 3.25 K/mm3 (1.96-9.15); NEUTROPHILS PERCENT AUTO 69 % (41-73); Platelet Count 103 K/mm3 (150-400); RDW Coefficient Variation 20.6 % (11.7-14.2); RDW Standard Deviation 65.1 fL (35.1-46.3); Red Blood Cell Count 3.96 M/mm3 (3.80-5.20); White Blood Cell Count 4.69 K/mm3 (4.00-11.30)
[2023-09-14 13:40] LABS: Mean Platelet Volume 11.4 fL (9.1-12.4)
[2023-09-14 14:01] LABS: Bilirubin, Total 0.7 mg/dL (0.1-1.0); Bun/Creatinine Ratio 22.9 (12.0-20.0); C-REACTIVE PROTEIN, EXT RANGE 1.62 mg/dL (0.000-0.300); Calcium, Blood 9.1 mg/dL (8.5-10.1); Creatinine, Blood 0.79 mg/dL (0.40-1.00); Potassium, Blood 3.9 mmol/L (3.5-5.5)
== END 2023-09-14 10:15 | disposition home or self-care (01) ==
LOC: ATC 02:32
PROVIDERS: Internal Medicine Infectious Disease
DX: T84.53XD Infection and inflammatory reaction due to internal right knee prosthesis, subsequent encounter (principal); J45.909 Unspecified asthma, uncomplicated; E11.9 Type 2 diabetes mellitus without complications; F32.A Depression, unspecified; Z87.891 Personal history of nicotine dependence
CPT/HCPCS: 80053; 85025; 85651; 86140; 96365; J0696

== ENCOUNTER 2023-09-15 02:57 | Day surgery (SDC) | payer OTHER ==
[~2023-09-15 02:57] MED LIST changes: -CefTRIAXone Sodium 2,000 MG in NS 100 ML IV SCH
[2023-09-15] MEDS ORDERED: CefTRIAXone Sodium 2,000 MG in NS 100 ML IV SCH (06:00)
[2023-09-15 09:47] VITALS: BP 117/67
== END 2023-09-15 10:24 | disposition home or self-care (01) ==
LOC: ATC 02:57
DX: T84.53XD Infection and inflammatory reaction due to internal right knee prosthesis, subsequent encounter (principal); J45.909 Unspecified asthma, uncomplicated; E11.9 Type 2 diabetes mellitus without complications; F32.A Depression, unspecified; I10 Essential (primary) hypertension; Z87.891 Personal history of nicotine dependence
CPT/HCPCS: 96365; J0696

== ENCOUNTER 2023-09-16 00:18 | Day surgery (SDC) | payer OTHER ==
[2023-09-16] MEDS ORDERED: CefTRIAXone Sodium 2,000 MG in NS 100 ML IV SCH (06:00)
[2023-09-16 09:48] VITALS: BP 119/59
== END 2023-09-16 10:08 | disposition home or self-care (01) ==
LOC: ATC 00:18
DX: T84.53XD Infection and inflammatory reaction due to internal right knee prosthesis, subsequent encounter (principal); E11.9 Type 2 diabetes mellitus without complications; I10 Essential (primary) hypertension; R78.81 Bacteremia; Z88.1 Allergy status to other antibiotic agents; Z86.73 Personal history of transient ischemic attack (TIA), and cerebral infarction without residual deficits; Z87.891 Personal history of nicotine dependence; Y79.2 Prosthetic and other implants, materials and accessory orthopedic devices associated with adverse incidents
CPT/HCPCS: 36415; 80053; 80202; 82550; 85025; 85651; 86140; 96365; J0696

== ENCOUNTER 2023-09-17 00:53 | Day surgery (SDC) | payer OTHER ==
[2023-09-17 09:40] VITALS: BP 120/67
== END 2023-09-17 10:27 | disposition home or self-care (01) ==
LOC: ATC 00:53
DX: T84.53XA Infection and inflammatory reaction due to internal right knee prosthesis, initial encounter (principal); Y79.2 Prosthetic and other implants, materials and accessory orthopedic devices associated with adverse incidents; E11.9 Type 2 diabetes mellitus without complications; J45.20 Mild intermittent asthma, uncomplicated; Z88.1 Allergy status to other antibiotic agents; I10 Essential (primary) hypertension; G47.33 Obstructive sleep apnea (adult) (pediatric); E03.9 Hypothyroidism, unspecified; E78.5 Hyperlipidemia, unspecified; Z79.899 Other long term (current) drug therapy; Z79.890 Hormone replacement therapy; Z79.84 Long term (current) use of oral hypoglycemic drugs; Z79.01 Long term (current) use of anticoagulants

== ENCOUNTER 2023-09-18 04:34 | Day surgery (SDC) | payer OTHER ==
[2023-09-18] MEDS ORDERED: Sod Ferric Gluc Complx/Sucrose 125 MG in NS 100 ML IV SCH (06:00)
[2023-09-18] MEDS ORDERED: CefTRIAXone Sodium 2,000 MG in NS 100 ML IV SCH (08:50)
[2023-09-18 09:50] VITALS: BP 118/50
--- NOTE | 2023-09-18 09:57 | NUR ---
LEAVING PICC LINE IN UNTIL TALKS WITH AT 1300.
== END 2023-09-18 10:12 | disposition home or self-care (01) ==
LOC: ATC 04:34
DX: T84.53XA Infection and inflammatory reaction due to internal right knee prosthesis, initial encounter (principal); Y79.2 Prosthetic and other implants, materials and accessory orthopedic devices associated with adverse incidents; E11.9 Type 2 diabetes mellitus without complications; I10 Essential (primary) hypertension; G47.33 Obstructive sleep apnea (adult) (pediatric); J45.20 Mild intermittent asthma, uncomplicated; Z87.891 Personal history of nicotine dependence; Z88.1 Allergy status to other antibiotic agents
CPT/HCPCS: 96365; J0696

== ENCOUNTER 2023-09-19 13:38 | Day surgery (SDC) | payer OTHER | END 2023-09-19 16:00 | disposition home or self-care (01) | LOC: ATC 13:38 | DX: T84.53XD Infection and inflammatory reaction due to internal right knee prosthesis, subsequent encounter (principal); Y79.2 Prosthetic and other implants, materials and accessory orthopedic devices associated with adverse incidents; J45.909 Unspecified asthma, uncomplicated; I10 Essential (primary) hypertension; E11.9 Type 2 diabetes mellitus without complications; F32.A Depression, unspecified; G47.33 Obstructive sleep apnea (adult) (pediatric); Z87.891 Personal history of nicotine dependence; Z88.1 Allergy status to other antibiotic agents; Z79.899 Other long term (current) drug therapy ==

== ENCOUNTER 2023-10-24 16:35 | Emergency (ER) | payer OTHER ==
[~2023-10-24] VITALS: Ht 162.6 cm; Wt 115.7 kg
[2023-10-24 17:16] LABS: BASOPHILS ABSOLUTE AUTO 0.04 K/mm3 (0.00-0.23); BASOPHILS PERCENT AUTO 1 % (0-2); EOSINOPHILS ABSOLUTE AUTO 0.11 K/mm3 (0.00-0.68); EOSINOPHILS PERCENT AUTO 2 % (0-6); Hematocrit 34.2 % (33.0-51.0); Hemoglobin 10.7 g/dL (11.5-16.0); IMMATURE GRAN ABSOLUTE AUTO 0.01 K/mm3 (0.00-0.10); IMMATURE GRAN PERCENT AUTO 0 % (0-1); LYMPHOCYTES ABSOLUTE AUTO 1.48 K/mm3 (0.84-5.20); LYMPHOCYTES PERCENT AUTO 30 % (21-46); MONOCYTES ABSOLUTE AUTO 0.47 K/mm3 (0.16-1.47); MONOCYTES PERCENT AUTO 10 % (4-13); Mean Corpuscular HGB 25.2 pg (26.0-34.0); Mean Corpuscular HGB Conc 31.3 g/dL (31.5-36.5); Mean Corpuscular Volume 81 fL (80-100); Mean Platelet Volume 10.5 fL (9.1-12.4); NEUTROPHILS ABSOLUTE AUTO 2.85 K/mm3 (1.96-9.15); NEUTROPHILS PERCENT AUTO 58 % (41-73); Platelet Count 145 K/mm3 (150-400); RDW Coefficient Variation 18.6 % (11.7-14.2); Red Blood Cell Count 4.24 M/mm3 (3.80-5.20); White Blood Cell Count 4.96 K/mm3 (4.00-11.30)
[2023-10-24 17:34] LABS: Albumin, Blood 3.4 g/dL (3.4-5.0); Bilirubin, Total 0.7 mg/dL (0.1-1.0); Bun/Creatinine Ratio 23.3 (12.0-20.0); Calcium, Blood 8.8 mg/dL (8.5-10.1); Creatinine, Blood 0.69 mg/dL (0.40-1.00); Globulin, Blood 3.3 g/dL (2.2-4.0); Potassium, Blood 3.9 mmol/L (3.5-5.5); Total Protein, Blood 6.7 g/dL (6.4-8.2)
[2023-10-24] MEDS ORDERED: SULFAMETHOXAZO1 EAC1 PO (20:08)
[2023-10-24] MEDS ORDERED: OXYCODONE-ACET1 EAC2 (20:10)
[2023-10-24] MEDS ORDERED: HYDROmorphone HCl/Pf 1MG SYR IV ONE (20:10)
[2023-10-24 21:30] VITALS: BP 142/69
== END 2023-10-24 21:54 | disposition home or self-care (01) ==
LOC: ER 16:35
PROVIDERS: Student in an Organized Health Care Education/Training Program
DX: M25.561 Pain in right knee (principal); G89.29 Other chronic pain; J45.909 Unspecified asthma, uncomplicated; E11.9 Type 2 diabetes mellitus without complications; Z86.73 Personal history of transient ischemic attack (TIA), and cerebral infarction without residual deficits; G47.33 Obstructive sleep apnea (adult) (pediatric); E03.9 Hypothyroidism, unspecified; Z87.891 Personal history of nicotine dependence; Z79.84 Long term (current) use of oral hypoglycemic drugs; Z79.899 Other long term (current) drug therapy; Z79.51 Long term (current) use of inhaled steroids; Z88.1 Allergy status to other antibiotic agents
CPT/HCPCS: 73562-RT; 80053; 83605; 85025; 96374; 99284-25; J1170

== ENCOUNTER → 2023-10-29 | Outpatient (CLI) | payer OTHER ==
[~2023-10-29] MED LIST changes: +OXYCODONE-ACET1 EAC2; +SULFAMETHOXAZO1 EAC1 PO
== END | disposition home or self-care (01) ==
LOC: LAB SHORT 11:30 → LAB 11:30
DX: N39.0 Urinary tract infection, site not specified (principal)
CPT/HCPCS: 87077; 87086; 87186

== ENCOUNTER 2023-11-05 05:40 | Day surgery (SDC) | payer OTHER ==
[2023-11-05] VITALS (11 sets, daily range): BP systolic 121–148; BP diastolic 63–97
[2023-11-05] MEDS ORDERED: METF500 PO (06:32)
[2023-11-05] MEDS ORDERED: Benzocaine Oral Spray 0.5ML UD ONE (06:56)
--- NOTE | 2023-11-05 07:32 | NUR ---
ASSUMED CARE FROM ANESTHESIA. PT AWAKE AND VERBALIZING WELL.
--- NOTE | 2023-11-05 08:17 | NUR ---
PT AMB IN RM /S DIFFICULTY. PT AND VERBALIZED UNDERSTANDING OF WRITTEN AND VERBAL D/C INST. IV REMOVED PT TAKEN OUT OF THE HRT CENTER VIA W/C.
[2023-11-05] MEDS ORDERED: Propofol 10mg/ml 20 ml Vial (Procedural) IV ONE (15:16)
== END 2023-11-05 22:42 | disposition home or self-care (01) ==
LOC: ORSCMMR 05:40 → MHTC 05:40 → ORSCMMR 05:41 → MHTC 05:41 → ORSCMMR 07:00 → ORD 07:00 → MHTC 22:42 → ORSCMMR 22:42
DX: I35.0 Nonrheumatic aortic (valve) stenosis (principal); I38 Endocarditis, valve unspecified; R93.1 Abnormal findings on diagnostic imaging of heart and coronary circulation; T84.59XD Infection and inflammatory reaction due to other internal joint prosthesis, subsequent encounter; J45.909 Unspecified asthma, uncomplicated; E78.5 Hyperlipidemia, unspecified; F32.9 Major depressive disorder, single episode, unspecified; G47.33 Obstructive sleep apnea (adult) (pediatric); E03.9 Hypothyroidism, unspecified; E11.9 Type 2 diabetes mellitus without complications; I11.0 Hypertensive heart disease with heart failure; I50.20 Unspecified systolic (congestive) heart failure; Z79.899 Other long term (current) drug therapy; Z87.891 Personal history of nicotine dependence; Z88.8 Allergy status to other drugs, medicaments and biological substances; Z95.2 Presence of prosthetic heart valve; Z96.659 Presence of unspecified artificial knee joint; Z99.89 Dependence on other enabling machines and devices
CPT/HCPCS: 93312; 93325; A9270; J2704

== ENCOUNTER 2023-11-26 15:54 | Emergency (ER) | payer OTHER ==
[~2023-11-26] VITALS: Ht 162.6 cm; Wt 113.4 kg
[2023-11-26 17:17] LABS: BASOPHILS ABSOLUTE AUTO 0.03 K/mm3 (0.00-0.23); BASOPHILS PERCENT AUTO 1 % (0-2); EOSINOPHILS ABSOLUTE AUTO 0.04 K/mm3 (0.00-0.68); EOSINOPHILS PERCENT AUTO 1 % (0-6); Hematocrit 32.7 % (33.0-51.0); Hemoglobin 10.2 g/dL (11.5-16.0); IMMATURE GRAN ABSOLUTE AUTO 0.01 K/mm3 (0.00-0.10); IMMATURE GRAN PERCENT AUTO 0 % (0-1); LYMPHOCYTES ABSOLUTE AUTO 1.59 K/mm3 (0.84-5.20); LYMPHOCYTES PERCENT AUTO 31 % (21-46); MONOCYTES ABSOLUTE AUTO 0.46 K/mm3 (0.16-1.47); MONOCYTES PERCENT AUTO 9 % (4-13); Mean Corpuscular HGB 25.1 pg (26.0-34.0); Mean Corpuscular HGB Conc 31.2 g/dL (31.5-36.5); Mean Corpuscular Volume 80 fL (80-100); Mean Platelet Volume 10.6 fL (9.1-12.4); NEUTROPHILS ABSOLUTE AUTO 3.02 K/mm3 (1.96-9.15); NEUTROPHILS PERCENT AUTO 59 % (41-73); Platelet Count 125 K/mm3 (150-400); RDW Coefficient Variation 18.9 % (11.7-14.2); RDW Standard Deviation 54.7 fL (35.1-46.3); Red Blood Cell Count 4.07 M/mm3 (3.80-5.20); White Blood Cell Count 5.15 K/mm3 (4.00-11.30)
[2023-11-26 17:46] LABS: Albumin, Blood 3.6 g/dL (3.4-5.0); Albumin/Globulin Ratio 1.1 (0.8-1.8); Bilirubin, Total 1.5 mg/dL (0.1-1.0); Bun/Creatinine Ratio 19.8 (12.0-20.0); Calcium, Blood 8.8 mg/dL (8.5-10.1); Creatinine, Blood 0.76 mg/dL (0.40-1.00); Globulin, Blood 3.3 g/dL (2.2-4.0); Potassium, Blood 3.5 mmol/L (3.5-5.5); Total Protein, Blood 6.9 g/dL (6.4-8.2)
[2023-11-26 20:39] LABS: International Normalized Ratio 1.68; Prothrombin Time Results 17.3 Sec (9.7-11.5)
[2023-11-26 22:29] LABS: Hematocrit 30.8 % (33.0-51.0); Hemoglobin 9.6 g/dL (11.5-16.0)
[2023-11-26] MEDS ORDERED: FERSU300 PO (22:49)
[2023-11-26 22:58] VITALS: BP 122/56
== END 2023-11-26 22:58 | disposition home or self-care (01) ==
LOC: ER 15:54
PROVIDERS: Emergency Medicine; Physician Assistant
DX: K92.1 Melena (principal); D50.9 Iron deficiency anemia, unspecified; E11.9 Type 2 diabetes mellitus without complications; E03.9 Hypothyroidism, unspecified; J45.909 Unspecified asthma, uncomplicated; Z79.899 Other long term (current) drug therapy; Z79.890 Hormone replacement therapy; Z79.84 Long term (current) use of oral hypoglycemic drugs; Z79.01 Long term (current) use of anticoagulants; Z88.8 Allergy status to other drugs, medicaments and biological substances; Z86.73 Personal history of transient ischemic attack (TIA), and cerebral infarction without residual deficits; Z95.2 Presence of prosthetic heart valve; Z87.891 Personal history of nicotine dependence
CPT/HCPCS: 80053; 85014; 85018; 85025; 85610; 99284

== ENCOUNTER → 2024-03-19 | Outpatient (CLI) | payer OTHER ==
[~2024-03-19] MED LIST changes: +FERSU300 PO
== END | disposition home or self-care (01) ==
LOC: LAB 16:15 → LAB SHORT 16:15
DX: N39.0 Urinary tract infection, site not specified (principal)
CPT/HCPCS: 87086

== ENCOUNTER 2025-03-29 22:39 | Emergency (ER) | payer MEDICARE ==
[~2025-03-29] VITALS: Ht 162.6 cm; Wt 113.4 kg
[~2025-03-29 22:39] MED LIST changes: +BREZTRI AEROS10.7 GM INH; -BUPR150ER PO; +BUPROPION XL150 M1 PO; +FAMO20 PO; -LOSA25 PO; +LOSA50 PO; +PREG100 PO; +Percocet 10-321 EACH PO; +Percocet 5-3251 EACH PO; +TORSE20 PO; +Voltaren100 GM TOP
[2025-03-29 22:51] VITALS: BP 139/82
[2025-03-29 23:23] LABS: BASOPHILS ABSOLUTE AUTO 0.04 K/mm3 (0.00-0.23); BASOPHILS PERCENT AUTO 1 % (0-2); EOSINOPHILS ABSOLUTE AUTO 0.22 K/mm3 (0.00-0.68); EOSINOPHILS PERCENT AUTO 3 % (0-6); Hematocrit 40.2 % (33.0-51.0); Hemoglobin 13.1 g/dL (11.5-16.0); IMMATURE GRAN ABSOLUTE AUTO 0.02 K/mm3 (0.00-0.10); IMMATURE GRAN PERCENT AUTO 0 % (0-1); LYMPHOCYTES ABSOLUTE AUTO 1.43 K/mm3 (0.84-5.20); LYMPHOCYTES PERCENT AUTO 21 % (21-46); MONOCYTES ABSOLUTE AUTO 0.68 K/mm3 (0.16-1.47); MONOCYTES PERCENT AUTO 10 % (4-13); Mean Corpuscular HGB Conc 32.6 g/dL (31.5-36.5); Mean Corpuscular Volume 89 fL (80-100); NEUTROPHILS ABSOLUTE AUTO 4.45 K/mm3 (1.96-9.15); NEUTROPHILS PERCENT AUTO 65 % (41-73); NRBC ABSOLUTE 0.00 K/mm3 (0.00-0.02); NRBC Auto 0.0 /100 WBC (0.0-0.2); Platelet Count 121 K/mm3 (150-400); RDW Coefficient Variation 17.0 % (11.7-14.2); RDW Standard Deviation 55.4 fL (35.1-46.3)
[2025-03-29 23:36] LABS: Prothrombin Time Results 19.3 Sec (9.7-11.5)
[2025-03-29 23:43] LABS: Alanine Aminotransfer (ALT/SGP 23.0 U/L (12-78); Albumin, Blood 3.6 g/dL (3.4-5.0); Albumin/Globulin Ratio 1.0 (0.8-1.8); Anion Gap 5.0 mmol/L (3-11); Aspartate Aminotrans (AST/SGOT 38.0 U/L (12-37); Bilirubin, Total 1.1 mg/dL (0.1-1.0); Blood Urea Nitrogen 15.0 mg/dL (8-24); CO2, Blood 31.0 mmol/L (21-32); Calcium, Blood 8.9 mg/dL (8.5-10.1); Chloride, Blood 105.0 mmol/L (98-108); Creatinine, Blood 0.88 mg/dL (0.40-1.00); Globulin, Blood 3.6 g/dL (2.2-4.0); Glucose, Blood 89.0 mg/dL (70-99); Potassium, Blood 4.0 mmol/L (3.5-5.5); Sodium, Blood 137.0 mmol/L (136-145); Total Protein, Blood 7.2 g/dL (6.4-8.2)
[2025-03-30 03:01] LABS: Source, Urine Clean Catch
[2025-03-30 03:11] LABS: Bilirubin, Urine Neg (Neg); Glucose Qualitative, Urine Neg (Neg); Ketones, Urine Neg (Neg); Leukocyte Esterase, Urine Neg (Neg); Protein, Urine 1+ (Neg); Specific Gravity, Urine 1.020 (1.003-1.022); Urobilinogen, Urine NORM (Normal)
[2025-03-30 03:29] LABS: Color, Urine Yellow (P-Yellow)
== END 2025-03-30 04:00 | disposition home or self-care (01) ==
LOC: ER 22:39
PROVIDERS: Student in an Organized Health Care Education/Training Program
DX: S00.03XA Contusion of scalp, initial encounter (principal); S80.211A Abrasion, right knee, initial encounter; D69.6 Thrombocytopenia, unspecified; Z86.73 Personal history of transient ischemic attack (TIA), and cerebral infarction without residual deficits; G47.33 Obstructive sleep apnea (adult) (pediatric); E11.9 Type 2 diabetes mellitus without complications; E03.9 Hypothyroidism, unspecified; W01.0XXA Fall on same level from slipping, tripping and stumbling without subsequent striking against object, initial encounter; Z79.51 Long term (current) use of inhaled steroids; Z79.899 Other long term (current) drug therapy; Z79.01 Long term (current) use of anticoagulants; Z88.1 Allergy status to other antibiotic agents
CPT/HCPCS: 70450; 71260; 72125; 73560-LT; 74177; 80053; 84484; 85025; 85610; 85730; 93005; 93010; 99284-25; Q9967

== ENCOUNTER 2025-04-03 16:22 | Inpatient (IN) | payer MEDICARE ==
[2025-04-03] VITALS (9 sets, daily range): BP systolic 138–179; BP diastolic 87–116
[~2025-04-03] VITALS: Ht 162.6 cm; Wt 119.6 kg
[2025-04-03 16:36] LABS: Calcium, Ionized (POC) 1.04 mmol/L (1.10-1.46); Chloride (POC) 106 mmol/L (98-108); Creatinine (POC) 1.1 mg/dL (0.6-1.0); Glucose (ISTAT POC) 179 mg/dL (70-99); Hematocrit (POC) 48.0 % (36.0-46.0); Hemoglobin (POC) 16.3 g/dL (12.0-16.0); Potassium (POC) 4.6 mmol/L (3.5-5.5); Sodium (POC) 139 mmol/L (135-148); Total CO2 (POC) 23 mmol/L (21-32)
[2025-04-03 16:53] LABS: BASOPHILS ABSOLUTE AUTO 0.04 K/mm3 (0.00-0.23); BASOPHILS PERCENT AUTO 1 % (0-2); EOSINOPHILS ABSOLUTE AUTO 0.13 K/mm3 (0.00-0.68); EOSINOPHILS PERCENT AUTO 2 % (0-6); Hematocrit 47.6 % (33.0-51.0); Hemoglobin 15.0 g/dL (11.5-16.0); IMMATURE GRAN ABSOLUTE AUTO 0.02 K/mm3 (0.00-0.10); IMMATURE GRAN PERCENT AUTO 0 % (0-1); LYMPHOCYTES ABSOLUTE AUTO 2.69 K/mm3 (0.84-5.20); LYMPHOCYTES PERCENT AUTO 37 % (21-46); MONOCYTES ABSOLUTE AUTO 0.28 K/mm3 (0.16-1.47); MONOCYTES PERCENT AUTO 4 % (4-13); Mean Corpuscular HGB Conc 31.5 g/dL (31.5-36.5); Mean Corpuscular Volume 91 fL (80-100); NEUTROPHILS ABSOLUTE AUTO 4.12 K/mm3 (1.96-9.15); NEUTROPHILS PERCENT AUTO 57 % (41-73); NRBC ABSOLUTE 0.00 K/mm3 (0.00-0.02); NRBC Auto 0.0 /100 WBC (0.0-0.2); Platelet Count 130 K/mm3 (150-400); RDW Coefficient Variation 17.1 % (11.7-14.2); RDW Standard Deviation 57.9 fL (35.1-46.3)
[2025-04-03 17:03] LABS: pH Blood Venous 7.33 (7.34-7.37)
[2025-04-03 17:05] LABS: Alanine Aminotransfer (ALT/SGP 22.0 U/L (12-78); Albumin, Blood 3.7 g/dL (3.4-5.0); Albumin/Globulin Ratio 0.9 (0.8-1.8); Anion Gap 13.0 mmol/L (3-11); Aspartate Aminotrans (AST/SGOT 36.0 U/L (12-37); Bilirubin, Total 1.2 mg/dL (0.1-1.0); Blood Urea Nitrogen 14.0 mg/dL (8-24); CO2, Blood 24.0 mmol/L (21-32); Calcium, Blood 9.1 mg/dL (8.5-10.1); Chloride, Blood 105.0 mmol/L (98-108); Creatinine, Blood 0.9 mg/dL (0.40-1.00); Globulin, Blood 3.9 g/dL (2.2-4.0); Glucose, Blood 180.0 mg/dL (70-99); Potassium, Blood 4.1 mmol/L (3.5-5.5); Sodium, Blood 138.0 mmol/L (136-145); Total Protein, Blood 7.6 g/dL (6.4-8.2)
[2025-04-03 17:06] LABS: Prothrombin Time Results 16.9 Sec (9.7-11.5)
[2025-04-03] MEDS ORDERED: FLU VACC TS2025(65UP)/MF59C/PF 45 MCG/0.5 ML SYRINGE IM SCH (18:00)
[2025-04-03] MEDS ORDERED: FURO40 PO (18:13)
[2025-04-03] MEDS ORDERED: WARF7.5 PO (18:14)
[2025-04-03 18:17] LABS: pH Blood Arterial 7.40 (7.35-7.45)
[2025-04-03] MEDS ORDERED: Ipratropium/Albuterol SulF 2.5-0.5MG/3 ML Amp INH PRN (19:30)
[2025-04-03] MEDS ORDERED: Percocet 5-3251 EACH PO (19:58)
[2025-04-03] MEDS ORDERED: OxyCODONE 5 mg/Acetamin 325 mg TABLET PO PRN (20:35)
[2025-04-03] MEDS ORDERED: Insulin Human Lispro 100 Units/ML 3ML Syringe SC SCH (21:00)
[2025-04-03] MEDS ORDERED: Etomidate 2MG / ML 10ML Vial IV ONE (21:08)
--- NOTE | 2025-04-03 22:31 | NUR ---
ADMISSION NOTE PT ARRIVED FROM ED VIA GURNEY AT 1930 AND TRANSFERRED TO ICU BED 6 WITHOUT INCIDENT. PT IN MILD DISTRESS, THOUGH THE ROOT OF THIS DISTRESS IS DIFFICULT TO DETERMINE THE PT HAS MUCH DIFFICULTY USING WORDS TO DESCRIBE HER SYMPTOMS. SHE IS ALERT AND ORIENTED TO SELF AND PERSON AND KNOWS THAT THANKSGIVING IS UPCOMING BUT DID NOT KNOW PLACE OR YEAR. AFEBRILE. C/O PAIN IN HEAD MOSTLY, THEN LATER C/O WHAT SOUNDS LIKE GI CRAMPS THROUGHOUT ABDOMEN BUT SHE ALSO SEEM TO RELATE EXACERBATIONS OF THOSE AB PAINS WITH EPISODES OF CHEST PAIN AND SOB THAT BROUGHT HER IN TO ED TODAY. SINUS RHYTHM VS JUNCTIONAL RHYTHM RATE OF 90'S, WITH BBB AND AV BLOCK, BP 168/100. 90-94% SAT ON 6L NC. PT DENIES CHEST PAIN/PRESSURE OR SOB AB PAIN INTERMITTENT AND CRAMPING. PT HAS MILD NAUSEA X 1 WEEK BUT IS HANDLING DIET PEPSI WITHOUT INCIDENT. NORMOACTIVE BOWEL SOUNDS THROUGHOUT. PUREWICK IN PLACE TO SUCTION DRAINING PALE YELLOW URINE
[2025-04-04] VITALS (36 sets, daily range): BP systolic 98–165; BP diastolic 57–114
[2025-04-04] MEDS ORDERED: Heparin Sodium,Porcine/0.5 NS 500 ML IV SCH (00:55)
[2025-04-04 05:53] LABS: Hematocrit 40.1 % (33.0-51.0); Hemoglobin 13.2 g/dL (11.5-16.0); Mean Corpuscular HGB Conc 32.9 g/dL (31.5-36.5); Mean Corpuscular Volume 90 fL (80-100); NRBC ABSOLUTE 0.00 K/mm3 (0.00-0.02); NRBC Auto 0.0 /100 WBC (0.0-0.2); Platelet Count 103 K/mm3 (150-400); RDW Coefficient Variation 17.0 % (11.7-14.2); RDW Standard Deviation 56.4 fL (35.1-46.3)
[2025-04-04 06:05] LABS: Prothrombin Time Results 18.9 Sec (9.7-11.5)
[2025-04-04 06:16] LABS: Alanine Aminotransfer (ALT/SGP 21.0 U/L (12-78); Albumin, Blood 3.2 g/dL (3.4-5.0); Albumin/Globulin Ratio 0.9 (0.8-1.8); Anion Gap 10.0 mmol/L (3-11); Aspartate Aminotrans (AST/SGOT 35.0 U/L (12-37); Bilirubin, Total 0.9 mg/dL (0.1-1.0); Blood Urea Nitrogen 16.0 mg/dL (8-24); CO2, Blood 29.0 mmol/L (21-32); Calcium, Blood 8.6 mg/dL (8.5-10.1); Chloride, Blood 103.0 mmol/L (98-108); Creatinine, Blood 0.74 mg/dL (0.40-1.00); Globulin, Blood 3.5 g/dL (2.2-4.0); Glucose, Blood 147.0 mg/dL (70-99); Magnesium, Blood 2.4 mg/dL (1.6-2.4); Phosphorus, Blood 3.5 mg/dL (2.5-4.9); Potassium, Blood 4.0 mmol/L (3.5-5.5); Sodium, Blood 138.0 mmol/L (136-145); Total Protein, Blood 6.7 g/dL (6.4-8.2)
--- NOTE | 2025-04-04 06:45 | NUR ---
SHIFT SUMMARY PT LYING IN BED SLEEPING, AWAKES TO VOICE AND IS ORIENTED TO MOST, SANS EXACT DATE AND OCCASIONALLY LOCATION. AFEBRILE. MAEW. SYMMETRIC STRENGTH IN EXTREMITIES. SINUS RHYTHM WITH BBB AND RATE OF 60'S, BP STABLE. 5L NC PRODUCING SATURATIONS > 90%. PT DENIES SOB AND CHEST PAIN/PRESSURE THOUGH DYSPNEA WITH EXERTION. LUNGS DIMINISHED THROUGHOUT. NO AB PAIN, MILD NAUSEA AND DECREASED APPETITE. SOME GENERALIZED AB PAIN DURING NIGHT. NO BM. PUREWICK IN PLACE TO SUCTION. 2.4 L OUT. HEPARIN INFUSING AT 15 UNITS/KG/HR. BEDSIDE SHIFT REPORT GIVEN TO ONCOMING RN.
--- NOTE | 2025-04-04 07:38 | NUR ---
ASSUMED CARE THIS RN ASSUMED CARE OF PATIENT AT 0700 WITH PRECEPTOR ALEJANDRA BUSTILLO. PATIENT IS AWAKE AND ALERT DURING BSSR. SHE IS PLEASANT AND MILDLY CONFUSED, PT REPORTS THAT SHE BELIEVES SHE IS IN THE HOSPITAL IN [place]. SHE KNOWS THE YEAR AND THAT THANKSGIVING IS UPCOMING. OTHERWISE SHE IS ORIENTED TO SELF AND SITUATION. SHE IS CURRENTLY ON 5L O2 VIA NC WITH SPO2 >96%. HR IN 60-70S, MONITOR SHOWS NSR. SYSTOLIC BP >120. SHE IS ON A HEPARIN DRIP AT 24.3ML/HR (15 UNITS) VERIFIED AT START OF SHIFT. PUREWICK IS IN PLACE SUCTIONING CLEAR YELLOW URINE. BED IN LOWEST POSITION. CALL LIGHT IN REACH.
[2025-04-04] MEDS ORDERED: Ondansetron HCl 2 MG / ML 2ML Vial IV PRN (08:30)
[2025-04-04 10:34] LABS: Source, Urine Clean Catch
[2025-04-04 10:45] LABS: Bilirubin, Urine Neg (Neg); Color, Urine Yellow (P-Yellow); Glucose Qualitative, Urine Neg (Neg); Ketones, Urine Neg (Neg); Leukocyte Esterase, Urine Neg (Neg); Protein, Urine Neg (Neg); Specific Gravity, Urine 1.020 (1.003-1.022); Urobilinogen, Urine NORM (Normal)
[2025-04-04] MEDS ORDERED: Metoclopramide HCl 5MG / ML 2ML Vial IV ONE (11:45)
--- NOTE | 2025-04-04 18:14 | NUR ---
SHIFT SUMMARY PATIENT HAS BEEN ALERT AND ORIENTED TO PERSON, PLACE, AND SITUATION. SHE IS PLEASANTLY CONFUSED DURING CONVERSATION AND OFTEN REQUESTS REMINDER ABOUT WHAT SHE HAS BEEN TALKING ABOUT. SHE HAS BEEN CONFUSED ON WHICH HOSPITAL SHE IS IN AND WHAT YEAR IT IS. OTHERWISE, SHE IS EASILY REORIENTED. FAMILY HAS BEEN AT BEDSIDE THROUGHOUT DAY. SHE IS CURRENTLY ON 2L O2 VIA NC WITH SPO2 >92%. RESPIRATIONS ARE EVEN AND UNLABORED UNLESS SHE'S REPOSITIONING SELF, THEN SHE BECOMES SOB UNTIL SHE RESTS FOR 10-15 MINUTES. SYSTOLIC BP HAS BEEN 90-120S. MAP >65. MONITOR SHOWS NSR WITH LBBB. SHE HAS HAD INTERMITENT NAUSEA, NO VOMITING. SHE HAS HAD A POOR APPETITE AND EATS A SMALL AMOUNT OF HER FOOD. OTHERWISE, PUREWICK IN PLACE WITH CLEAR YELLOW URINE IN CANISTER. CALL LIGHT IN REACH. BED IN LOWEST POSITION.
--- NOTE | 2025-04-04 19:19 | NUR ---
ASSUMPTIO OF CARE CARE OF PT ASSUMED FOLLOWING BEDSIDE SHIFT REPORT FROM DAY RN. PT LYING IN BED IN NO APPARENT DISTRESS. ALERT BUT CONFUSED ABOUT LOCATION AND EXACT DATE. PLEASANT. SINUS RHYTHM IN THE 70'S. LOSARTAN HELD THIS EVENING FOR SOFTISH SBP. WILL MONITOR. CURRENTLLY 106/64 (77). NO CHEST PAIN OR SOB. 2L NC WITH SAT 95%. PROVIDERS WOULD LIKE PT TO WEAR CPAP TONIGHT, EVENING THOUGH SPO2 DID NOT DECREASE AT ALL WHILE PT SLEPT LAST NIGHT. WILL BE DIFFICULT WITH LESIONS, BRUISES ON PT HEAD FROM FALL LAST WEEK. NO AB PAIN AT THIS TIME. MILD NAUSEA. DOES NOT WANT MEDICATION. PUREWICK IN PLACE TO SUCTION DRAINING PALE YELLOW URINE. SALINE LOCKED. RESTARTING WARFARIN. SCD'S IN PLACE. WILL REVIEW AND CONTINUE PLAN OF CARE.
[2025-04-05] VITALS (32 sets, daily range): BP systolic 93–159; BP diastolic 53–97
[2025-04-05 05:19] LABS: BASOPHILS ABSOLUTE AUTO 0.04 K/mm3 (0.00-0.23); BASOPHILS PERCENT AUTO 1 % (0-2); EOSINOPHILS ABSOLUTE AUTO 0.06 K/mm3 (0.00-0.68); EOSINOPHILS PERCENT AUTO 1 % (0-6); Hematocrit 39.0 % (33.0-51.0); Hemoglobin 12.8 g/dL (11.5-16.0); IMMATURE GRAN ABSOLUTE AUTO 0.03 K/mm3 (0.00-0.10); IMMATURE GRAN PERCENT AUTO 0 % (0-1); LYMPHOCYTES ABSOLUTE AUTO 1.80 K/mm3 (0.84-5.20); LYMPHOCYTES PERCENT AUTO 24 % (21-46); MONOCYTES ABSOLUTE AUTO 0.59 K/mm3 (0.16-1.47); MONOCYTES PERCENT AUTO 8 % (4-13); Mean Corpuscular HGB Conc 32.8 g/dL (31.5-36.5); Mean Corpuscular Volume 89 fL (80-100); NEUTROPHILS ABSOLUTE AUTO 5.04 K/mm3 (1.96-9.15); NEUTROPHILS PERCENT AUTO 67 % (41-73); NRBC ABSOLUTE 0.00 K/mm3 (0.00-0.02); NRBC Auto 0.0 /100 WBC (0.0-0.2); Platelet Count 116 K/mm3 (150-400); RDW Coefficient Variation 17.2 % (11.7-14.2); RDW Standard Deviation 56.6 fL (35.1-46.3)
[2025-04-05 05:48] LABS: Anion Gap 8.0 mmol/L (3-11); Blood Urea Nitrogen 26.0 mg/dL (8-24); CO2, Blood 32.0 mmol/L (21-32); Calcium, Blood 8.8 mg/dL (8.5-10.1); Chloride, Blood 103.0 mmol/L (98-108); Creatinine, Blood 0.85 mg/dL (0.40-1.00); Glucose, Blood 90.0 mg/dL (70-99); Potassium, Blood 3.5 mmol/L (3.5-5.5); Sodium, Blood 139.0 mmol/L (136-145)
--- NOTE | 2025-04-05 06:12 | NUR ---
SHIFT SUMMARY PT LYING IN BED SLEEPING, AWAKES TO VOICE AND IS ORIENTED TO MOST, SANS EXACT DATE AND OCCASIONALLY LOCATION. AFEBRILE. MAEW. SYMMETRIC STRENGTH IN EXTREMITIES. SINUS RHYTHM WITH BBB AND RATE OF 48-60'S, BP STABLE. 2L NC VS 16/8/35% BIPAP (CURRENT- WORE FOR 5 HRS TOTAL) PRODUCING SATURATIONS > 90%. PT DENIES SOB AND CHEST PAIN/PRESSURE THOUGH DYSPNEA WITH EXERTION. LUNGS DIMINISHED THROUGHOUT. NO AB PAIN, MILD NAUSEA AND DECREASED APPETITE. NO AB PAIN DURING NIGHT. NO BM. PUREWICK IN PLACE TO SUCTION. 1.4 L OUT. PT BACK ON WARFARIN- DOSED PER PHARMACY. BEDSIDE SHIFT REPORT GIVEN TO ONCOMING RN.
--- NOTE | 2025-04-05 09:00 | NUR ---
MORNING ASSESSMENT: PATIENT RESTING COMFORTABLY THIS MORNING. PATIENT REPORTS THAT HEADACHE HAS IMPROVED WITH PAIN MEDICATIONS. PATIENT ALERT AND ORIENTED TO SELF, MONTH, PLACE AND CURRENT SITUATION. PATIENT ABLE TO DISCUSS HER LASIX AND REMEMBER THAT SHE NEEDS THIS MEDICATION. UNABLE TO RECALL OTHER HOME MEDICATIONS. PATIENT REPORTS THAT SHE WAS FINALLY ABLE TO GET SOME GOOD SLEEP. PER NOC RN, PATIENT TOLERATED BIPAP (16/8/35%) FOR ABOUT 5 HOURS LAST NIGHT. SHE REPORTED THAT THE MASK IS SIGNIFICANTLY MORE COMFORTABLE THAN HER HOME MASK. PATIENT REPORTED SOME CONCERNS ABOUT [facility] AND THAT SHE IS STILL MAKING PAYMENTS TO THEM. CARE COORDINATION CONSULT PLACED.
--- NOTE | 2025-04-05 09:02 | NUR ---
NEW PCP APPOINTMENT: PATIENT REMEMBERED THIS MORNING THAT SHE HAD AN APPOINTMENT SCHEDULED THIS AM AT [facility]. CALLED THE OFFICE, CANCELED THIS APPOINTMENT AND MADE A NEW APPOINTMENT FOR HER ON APRIL 12, 2025 AT 10:45. PATIENT NOTIFIED.
[2025-04-05 12:39] LABS: Prothrombin Time Results 27.0 Sec (9.7-11.5)
[2025-04-05] MEDS ORDERED: Formoterol/Mometasone MDI 5/200 mcg 13 GM INH SCH (13:10)
[2025-04-05] MEDS ORDERED: Tiotropium Bromide 2.5 MCG/ACT MIST INHAL (10 ACT/4 GM) INH SCH (13:10)
--- NOTE | 2025-04-05 19:39 | NUR ---
SHIFT SUMMARY: NEURO: PATIENT ALERT AND ORIENTED TO SELF, PLACE, SITUATION AND FOLLOWING COMMANDS. PATIENT ABLE TO DISCUSS SOME ASPECTS OF CARE AND FORGETFUL OF OTHERS. PATIENT REPORTED THAT SHE IS AWARE THAT HER MEMORY IS IMPAIRED. PATIENT UP TO THE CHAIR WITH FWW. PATIENT BECAME VERY DIZZY AND SOB WITH BOTH TRANSFERS. THIS CAUSED SOME UNSTEADINESS WITH HER BALANCE. RESPIRATORY: PATIENT STABLE ON 2L VIA NC WHEN AWAKE AND ON THE BIPAP 16/8/35% WITH SLEEP. NOTED THAT PATIENT DID EXPERIENCE ONE EPISODE OF LARGE VOLUMES AND MINUTE VENTILATION. THIS RESOLVED WHILE DISCUSSING THE SITUATION WITH RT. PATIENT REPORTS IMPROVEMENT IN BREATHING. CARDIAC: PATIENT'S VITALS STABLE WITH MAPS >65 AND SBP >100. PATIENT TOLERATING LASIX WELL WITH LIGHT YELLOW URINE OUTPUT THROUGHOUT THE SHIFT. PATIENT DIZZY WITH TRANSFERS. WITH ONE TRANSFER (BED TO CHAIR) SHE EXPERIENCED ABOUT A 20MMHG DROP IN SBP. WITH TRANSFER BACK TO BED, SHE EXPERIENCED ABOUT A 20MMHG INCREASE IN SBP. GI/: PATIENT CONTINUES TO HAVE A POOR APETITE. SHE IS WILLING TO WORK ON AN ENSURE IF IT IS LEFT AT BESIDE. PATIENT REPORTS LACK OF BOWEL MOVEMENT. BOWEL CARE TO START TO NIGHT PER THE PATIENT'S REQUEST. PSYCHSOCIAL: PATIENT'S FAMILY AT BEDSIDE THE SHIFT. THEY ARE ENCOURAGING OF THE PATIENT AND HELPFUL IN THE ROOM.
--- NOTE | 2025-04-05 20:10 | NUR ---
PATIENT'S MEDICATION RECONCILIATION: OBTAINED MEDICATION LIST FROM [facility]. IT APPEARS TO BE AN INCOMPELTE LIST. CALLED PATIENT'S PCP OFFICE CLAUS YOUNG AND REQUESTED A FULL MEDICATION LIST. AT THE TIME OF THIS NOTE, NO LIST HAS BEEN RECEIVED.
--- NOTE | 2025-04-05 22:12 | NUR ---
ASSUMPTION OF CARE NOTE: PT IS RELAXING IN BED ABLE TO ANSWER ALL ORIENTATION QUESTIONS. CURRENTLY ON 2L NC SPO2 >92%. SBP'S 130'S AND HR 60-70'S. REPORTS MIGRAINE AND MEDICATED PER EMAR. PATENT PUREWICK IN PLACE AND DRAINING TO SUCTION WITH NO LEAKAGE. PATENT MARIA ISABEL PG AND LH PIV. PT HAS HAD A LOW APPETITE REPORTED BY DAYSHIFT. HAS CALL LIGHT IN REACH AND BED LOW AND LOCKED FOR SAFETY.
[2025-04-06] VITALS (16 sets, daily range): BP systolic 81–130; BP diastolic 54–88
[2025-04-06 04:12] LABS: Prothrombin Time Results 25.1 Sec (9.7-11.5)
[2025-04-06 04:18] LABS: Anion Gap 7.0 mmol/L (3-11); Blood Urea Nitrogen 32.0 mg/dL (8-24); CO2, Blood 34.0 mmol/L (21-32); Calcium, Blood 8.8 mg/dL (8.5-10.1); Chloride, Blood 100.0 mmol/L (98-108); Creatinine, Blood 0.97 mg/dL (0.40-1.00); Glucose, Blood 95.0 mg/dL (70-99); Potassium, Blood 3.4 mmol/L (3.5-5.5); Sodium, Blood 138.0 mmol/L (136-145)
[2025-04-06] MEDS ORDERED: Potassium Chloride 10 Meq Tablet SA PO ONE (05:00)
--- NOTE | 2025-04-06 06:12 | NUR ---
SHIFT SUMM: PT HAS BEEN RELAXING THIS SHIFT. ORIENTATION REMAINS THE SAME ABLE TO ANSWER QUESTIONS AND MAKE NEEDS KNOWN WITH SOME SHORT TERM MEMERY LOSS. SBP'S 120'S-130'S AND HR 60-70'S. SPO2 >96% CURRENTLY ON 2LNC BUT HAD BIPAP ON WHILE ASLEEP. LOW APPETITE.MEDICATED FOR MIGRAINE PAIN (SEE EMAR). PIV AND PG REMAIN PATENT. PATENT InSphero. PT WAS GIVEN POTASSIUM REPLACEMENT THIS MORNING FOR POTASSIUM OF 3.4 (SEE EMAR). HAS CALL LIGHT IN REACH AND BED LOW AND LOCKED .
--- NOTE | 2025-04-06 08:00 | NUR ---
ASSUMPTION OF CARE RECEIVED REPORT FROM [facility] NURSE. PT IS A&OX4, USES CALL LIGHT, AND MAKES NEEDS KNOWN. PT DX WITH DEMENTIA, HAS DIFFICULTY RETAINING NEW INFORMATION. PT IS PLEASANT ABLE TO BE REORIENTED. PT ON 2L NC, SPO2 >92%. PT DENIES SOB. HR IN 60-70S, MAP >65. PT DENIES CHEST PAIN/PRESSURE. PT DENIES ABD PAIN. PT HAS DECREASED APPETITE. PT HAS +1 EDEMA IN BLE. PT HAS PIV IN LEFT HAND AND POWERGLIDE IN MARIA ISABEL. PT REPORTS INCREASED WEAKNESS. PUREWICK IN PLACE ATTACHED TO SUCTION. CALL LIGHT WITHIN REACH WITH NO NEEDS EXPRESSED AT THIS TIME.
--- NOTE | 2025-04-06 11:17 | NUR ---
PT'S CPAP UPDATE.... PER RT THE PT'S CPAP HUMIDIFIER SEAL WAS PLACED "WRONG" AND THEY ARE UNABLE TO USE THE CPAP WITHOUT POSSIBLE DAMAGE TO THE UNIT. THIS RN CALLED [facility], THE PT OR FAMILY NEED TO BRING THE CPAP INTO THE [facility]ORE AND THEY WILL GIVE HER A LOANER IF HERS NEEDS TO BE SENT OUT.
--- NOTE | 2025-04-06 16:31 | NUR ---
PATIENT HAS FAMILY AT BEDSIDE CURRENTLY. PLAN TO MEET WITH PT IN THE MORNING. NO IMMEDIATE NEEDS NOTED.
--- NOTE | 2025-04-06 20:30 | NUR ---
ASSUMPTION OF CARE: ASSUMED CARE OF PT AT 1910. PT ALERT AND ORIENTED, FOLLOWS DIRECTION AND MAKES NEEDS KNOWN. PT HAS PERIODS OF CONFUSION BUT IS EASILY REORIENTED. PT UP IN CHAIR UPON ARRIVAL. ON RA WITH SPO2 >94%. DENIES SOB. COOK BARBECUE IN PLACE, SR WITH HR 70'S. SBP 120-130'S. DENIES CP. PT TOLERATING PO INTAKE. ALTHOUGH STATES HER APPETITE HAS BEEN POOR. PIV TO LH AND PG TO MARIA ISABEL BOTH PATENT AND SALINE LOCKED. PUREWICK IN PLACE TO SUCTION, DRAINING YELLOW URINE. CALL LIGHT IN REACH.
[2025-04-07] VITALS (8 sets, daily range): BP systolic 104–126; BP diastolic 53–75
[2025-04-07 04:39] LABS: Prothrombin Time Results 17.6 Sec (9.7-11.5)
[2025-04-07 04:44] LABS: Anion Gap 8.0 mmol/L (3-11); Blood Urea Nitrogen 33.0 mg/dL (8-24); CO2, Blood 33.0 mmol/L (21-32); Calcium, Blood 9.3 mg/dL (8.5-10.1); Chloride, Blood 98.0 mmol/L (98-108); Creatinine, Blood 1.0 mg/dL (0.40-1.00); Glucose, Blood 106.0 mg/dL (70-99); Potassium, Blood 3.6 mmol/L (3.5-5.5); Sodium, Blood 135.0 mmol/L (136-145)
--- NOTE | 2025-04-07 05:12 | NUR ---
SHIFT SUMMARY: NO ACUTE EVENTS OVERNIGHT. NEURO STATUS UNCHANGED. PT TOLERATED CPAP MOST OF THE NIGHT. ON RA/2L WHEN NOT ON CPAP. SPO2 >94%. DENIES SOB. REMAINS IN SR WITH BBB, HR 60'S. SBP 120'S. NO C/O CP. PUREWICK IN PLACE DRAINING TO SUCTION. TOLERATING PO INTAKE. NO BM THIS SHIFT, DR. TORRES PLACED ORDER FOR MIRALAX FOR THIS AM. BED LOCKED, CALL LIGHT IN REACH.
[2025-04-07] MEDS ORDERED: Polyethylene Glycol 3350 17 gm PO PRN (08:00)
--- NOTE | 2025-04-07 12:14 | NUR ---
REASSESSMENT PT GOT UP TO THE CHAIR WITH PT AND OT THIS MORNING AND HAS REMAINED IN IT SINCE. SHE WAS ONLY ORIENTED TO HERSELF THIS MORNING AND KNEW THAT SHE WAS IN THE HOSPITAL, BUT DIDN'T KNOW WHAT CITY. THROUGHOUT THE MORNING SHE HAS BECOME LESS CONFUSED, ORIENTED TO PERSON AND PLACE. STILL FORGETFUL AT TIMES. LUNGS ARE CLEAR, BUT DIM. OXYGEN TITRATED OFF AND SPO2 94% ON RA. SR IN THE 60S. PUREWICK REMOVED AND PT GETTING UP TO THE COMMODE TO VOID. NO BM, BUT SHE IS PASSING GAS. PT STATES SHE HAS DIFFICULTY HAVING BMS ANYWHERE OTHER THAN HOME. RECEIVED MIRALAX THIS MORNING. PT'S DAUGHTERS HAVE BEEN AT THE BEDSIDE MOST OF THE MORNING AND HAVE BEEN UPDATED BY NURSING STAFF, CARE MANAGEMENT AND DR. WYNNE. DR. WYNNE GAVE OK FOR PT TO BE MED WITH TELE STATUS.
[2025-04-07] MEDS ORDERED: MIRALAX17 GM PO (13:23)
[2025-04-07] MEDS ORDERED: ALBU90OI INH (13:24)
[2025-04-07] MEDS ORDERED: JARDIANCE10 MG PO (13:25)
[2025-04-07] MEDS ORDERED: SPIR25 PO (13:25)
--- NOTE | 2025-04-07 13:43 | NUR ---
Spiritual Care visit. Pt. is awake and sitting in a chair when she welcomes my visit. Pt. is pleasant and verbalizes the prospects of going to [facility]. Normalized the Pt. experience and encouraged the Pt. to consider it an opportunity to get stronger. Pt. displayed evidence of agreement and being encouraged. Prayed with Pt. pt. verbalized gratitude fo rthe spiritual care visit.
--- NOTE | 2025-04-07 16:54 | NUR ---
SHIFT SUMMARY PT SPENT MOST OF THE DAY UP IN THE CHAIR. SHE HAS BEEN ALERT AND ORIENTED TO PERSON AND PLACE. SHE IS MOVING FROM THE CHAIR TO THE COMMODE OR BED WITH 1 PERSON ASSIST. HER LUNGS ARE CLEAR, DIM IN THE BASES, HAS REMAINED ON RA SINCE BEING TITRATED OFF. SR. VOIDING WITHOUT DIFFICULTY. STILL NO BM, BUT PASSES GAS EACH TIME SHE IS ON THE COMMODE. PT WAS GOING TO GO TO [facility] THIS AFTERNOON, BUT THAT HAD TO BE CANCELLED DUE TO LACK OF INSURANCE. CARE MANAGEMENT IS WORKING WITH PT AND PT'S DAUGHTERS TO COME UP WITH A PLAN.
--- NOTE | 2025-04-07 20:15 | NUR ---
ASSESSMENT/ASSUMED CARE PT SITTING UP IN BED WATCHING TV. SPEECH CLEAR AND APPROP. A&O X3. REORIENTED TO YEAR. DENIES PAIN OR DISCOMFORT. STATES,"THIS IS THE FIRST NIGHT MY HEAD HAS NOT BEEN HURTING". LUNGS CLEAR BUT DECREASED IN ROOMAIR. RESP EVEN AND NONLABORED. DENIES SOB OR COUGH. HEART RATE REGULAR IN THE 70'S. BP STABLE. DENIES CHEST PAIN OR PRESSURE. BT+ ABD SOFT AND NONTENDER. DENIES N/V. IV TO LEFT WRIST SALINE LOCKED. SITE CLEAR. FLUSHED WITHOUT DIFFICULTY. POWER GLIDE TO RIGHT UPPER ARM DRSG INTACT. SITE CLEAR. SALINE LOCKED. UNABLE TO DRAW BLOOD BUT FLUSHED WITHOUT DIFFICUTLY. UP TO BSC WITH WALKER AND ONE ASSIST. VOIDED YELLOW URINE THAN BACK TO BED. PURWICK PLACED WITH CLEAN ATTENDS. HS MEDS GIVEN.
--- NOTE | 2025-04-07 23:27 | NUR ---
UPDATE PT SITTING UP IN BED WATCHING TV. DENIES PAIN OR DISCOMFORT. STATES,"MY HEADACHE IS ALL GONE NOW". VSS.
[2025-04-08 03:25] LABS: BASOPHILS ABSOLUTE AUTO 0.07 K/mm3 (0.00-0.23); BASOPHILS PERCENT AUTO 1 % (0-2); EOSINOPHILS ABSOLUTE AUTO 0.31 K/mm3 (0.00-0.68); EOSINOPHILS PERCENT AUTO 4 % (0-6); Hematocrit 41.1 % (33.0-51.0); Hemoglobin 13.5 g/dL (11.5-16.0); IMMATURE GRAN ABSOLUTE AUTO 0.01 K/mm3 (0.00-0.10); IMMATURE GRAN PERCENT AUTO 0 % (0-1); LYMPHOCYTES ABSOLUTE AUTO 2.71 K/mm3 (0.84-5.20); LYMPHOCYTES PERCENT AUTO 35 % (21-46); MONOCYTES ABSOLUTE AUTO 0.70 K/mm3 (0.16-1.47); MONOCYTES PERCENT AUTO 9 % (4-13); Mean Corpuscular HGB Conc 32.8 g/dL (31.5-36.5); Mean Corpuscular Volume 90 fL (80-100); NEUTROPHILS ABSOLUTE AUTO 4.03 K/mm3 (1.96-9.15); NEUTROPHILS PERCENT AUTO 52 % (41-73); NRBC ABSOLUTE 0.00 K/mm3 (0.00-0.02); NRBC Auto 0.0 /100 WBC (0.0-0.2); Platelet Count 142 K/mm3 (150-400); RDW Coefficient Variation 17.2 % (11.7-14.2); RDW Standard Deviation 56.6 fL (35.1-46.3)
[2025-04-08 03:39] LABS: Prothrombin Time Results 15.4 Sec (9.7-11.5)
[2025-04-08 03:47] LABS: Alanine Aminotransfer (ALT/SGP 22.0 U/L (12-78); Albumin, Blood 3.0 g/dL (3.4-5.0); Albumin/Globulin Ratio 0.9 (0.8-1.8); Anion Gap 6.0 mmol/L (3-11); Aspartate Aminotrans (AST/SGOT 30.0 U/L (12-37); Bilirubin, Total 1.1 mg/dL (0.1-1.0); Blood Urea Nitrogen 32.0 mg/dL (8-24); CO2, Blood 35.0 mmol/L (21-32); Calcium, Blood 9.5 mg/dL (8.5-10.1); Chloride, Blood 99.0 mmol/L (98-108); Creatinine, Blood 0.85 mg/dL (0.40-1.00); Globulin, Blood 3.2 g/dL (2.2-4.0); Glucose, Blood 106.0 mg/dL (70-99); Potassium, Blood 3.9 mmol/L (3.5-5.5); Sodium, Blood 136.0 mmol/L (136-145); Total Protein, Blood 6.2 g/dL (6.4-8.2)
--- NOTE | 2025-04-08 05:48 | NUR ---
SHIFT SUMMARY PT RESTING QUIELTY AT THIS TIME WITH BIPAP ON. BIPAP SETTINGS 14/ FIO2 35%. SPO2 98% WITH BIPAP ON. PT MED DURING THE NIGHT WITH NORCO FOR HEAD PAIN DUE TO FALL AT HOME ONE WEEK AGO. PT UP TO BSC WITH WALKER AND ONE ASSIST. DURING THE NIGHT REQUESTED PURWICK, DONE. VOIDING YELLOW URINE. VSS. MOVING AND TURNING SELF IN BED. REPORT TO ON COMING NURSE
[2025-04-08 09:17] VITALS: BP 117/66
[2025-04-08 12:25] VITALS: BP 112/53
--- NOTE | 2025-04-08 12:31 | NUR ---
REASSESSMENT PT SLEPT UNTIL ABOUT 1000 THIS MORNING AND HAS BEEN SITTING UP IN A CHAIR SINCE. SHE HAS BEEN ORIENTED TO PERSON AND PLACE. WAS ABLE TO WALK OVER TO THE TOILET AND HAVE A BM. LUNGS REMAIN CLEAR, RA, SR.
--- NOTE | 2025-04-08 17:20 | NUR ---
1650- PT ARRIVED ON MEDICAL FLOOR IN IN STABLE CONDITION ON RA WITH TRANSPORTATION REFRIGERATION TECHNICIAN PAT AFTER RECIEVING REPORT.
--- NOTE | 2025-04-08 17:31 | NUR ---
TRANSFER PT MOVED TO MEDICAL FLOOR RM 352. PT TRANSFERRED VIA WC, ALL BELONGINGS SEND WITH PT. PT CALLED HER FAMILY AND GAVE THEM HER NEW ROOM NUMBER. REPORT GIVEN TO ALEJANDRA COREA.
[2025-04-08 18:03] VITALS: BP 114/60
--- NOTE | 2025-04-08 18:34 | NUR ---
SUMMARY- PT WAS AAOX4 SINCE MOVED TO MEDICAL FLOOR. PT ANSWERED ALL ORIENTATION Q'S CORRECTLY. NO ACUTE EVENTS THIS SHIFT. SBA. PT ON RA. PT DENIES ANY PAIN. GOOD APPETITE.
[2025-04-08 20:36] VITALS: BP 121/79
[2025-04-09 00:23] VITALS: BP 112/57
--- NOTE | 2025-04-09 04:46 | NUR ---
SHIFT SUMMARY PT A&Ox3 AND PLEASANT. PT MEDICATED PER EMAR FOR C/O LEFT SIDE TOOTH PAIN, WITH GOOD EFFECT. PER RT, PT COULD LIKELY DO WELL WITH OUT BIPAP TONIGHT. NC SET UP AT BEDSIDE IN CASE PT'S O2 SATS DROPPED TOO LOW VIA CONTINIOUS PULSE OX BUT PT APPEARED TO TOLERATE RA WELL. NO EVENTS ON TELE. VSS. BED IN LOWEST POSITION AND CALL LIGHT IN REACH.
[2025-04-09 05:24] VITALS: BP 115/64
[2025-04-09 07:21] VITALS: BP 125/58
[2025-04-09 07:34] LABS: Albumin, Blood 3.3 g/dL (3.4-5.0); Anion Gap 8 mmol/L (3-11); Blood Urea Nitrogen 28 mg/dL (8-24); CO2, Blood 33 mmol/L (21-32); Calcium, Blood 9.4 mg/dL (8.5-10.1); Chloride, Blood 102 mmol/L (98-108); Creatinine, Blood 0.86 mg/dL (0.40-1.00); Glucose, Blood 98 mg/dL (70-99); Phosphorus, Blood 3.8 mg/dL (2.5-4.9); Potassium, Blood 3.9 mmol/L (3.5-5.5); Sodium, Blood 139 mmol/L (136-145)
[2025-04-09 08:00] LABS: Prothrombin Time Results 14.0 Sec (9.7-11.5)
== END 2025-04-09 13:18 | disposition home health service (06) | DRG 280 ==
LOC: ER 16:22 → ICUE 17:58 → MEDS 04-08 16:45 → ENPENDDIS 04-09 09:52 → MEDS 04-09 13:18
PROVIDERS: Emergency Medicine; Internal Medicine; Nurse Practitioner Acute Care; Student in an Organized Health Care Education/Training Program; ADMIT Internal Medicine
PROC: B24BZZZ Ultrasonography of Heart with Aorta (ICD-10-PCS; principal; 2025-04-03)
PROC: 4A033R1 Measurement of Arterial Saturation, Peripheral, Percutaneous Approach (ICD-10-PCS; 2025-04-03)
PROC: 5A09357 Assistance with Respiratory Ventilation, Less than 24 Consecutive Hours, Continuous Positive Airway Pressure (ICD-10-PCS; 2025-04-06)
DX: I11.0 Hypertensive heart disease with heart failure (principal); I50.43 Acute on chronic combined systolic (congestive) and diastolic (congestive) heart failure; I21.A1 Myocardial infarction type 2; J96.01 Acute respiratory failure with hypoxia; K76.6 Portal hypertension; E66.2 Morbid (severe) obesity with alveolar hypoventilation; Z68.42 Body mass index [BMI] 45.0-49.9, adult; R51.9 Headache, unspecified; K75.81 Nonalcoholic steatohepatitis (NASH); F01.50 Vascular dementia, unspecified severity, without behavioral disturbance, psychotic disturbance, mood disturbance, and anxiety; K74.60 Unspecified cirrhosis of liver; D69.6 Thrombocytopenia, unspecified; J44.9 Chronic obstructive pulmonary disease, unspecified; K21.9 Gastro-esophageal reflux disease without esophagitis; D50.9 Iron deficiency anemia, unspecified; E11.40 Type 2 diabetes mellitus with diabetic neuropathy, unspecified; E03.9 Hypothyroidism, unspecified; F32.A Depression, unspecified; Z86.718 Personal history of other venous thrombosis and embolism; Z79.01 Long term (current) use of anticoagulants; Z95.2 Presence of prosthetic heart valve; Z91.148 Patient's other noncompliance with medication regimen for other reason; Z88.1 Allergy status to other antibiotic agents; Z79.899 Other long term (current) drug therapy; Z79.890 Hormone replacement therapy; Z91.198 Patient's noncompliance with other medical treatment and regimen for other reason; Z90.49 Acquired absence of other specified parts of digestive tract
CPT/HCPCS: 36415; 36600; 71045; 71260; 80047; 80048; 80053; 80069; 81003; 82140; 82803; 82947; 83605; 83690; 83735; 83880; 84100; 84443; 84484; 85014; 85025; 85027; 85520; 85610; 85730; 90653; 93005; 93010; 94640; 94660; 94664; 94761; 94762; 97110; 97112; 97116; 97161; 97166; 97530; 97535; 99285-25; A6590; A9270; C8929; G0008; J1644; J1938; Q9957; Q9967